=== PATIENT | female | born 1960 | race Caucasian/White ===

== ENCOUNTER 2018-03-09 07:46 | Inpatient (IN) | payer OTHER ==
[2018-03-09 08:03] VITALS: BMI 36.8
--- NOTE | 2018-03-09 08:52 | PDOC ---
History of Present Illness - History of Present Illness Initial Comments: The patient is a 57 year old chadian speaking female with PMHx of panic attacks , anxiety, and GERD, who presents with RUQ pain since last night. The patient reports that last night she ate [place] food and soon afterwards she began experiencing abdominal pain. She states that she woke up around 5 am and the abdominal pain worsened. She describes her abdominal pain as constant, does not radiate, rates 10/10, states that she has felt this type of pain before but it hasn't gone away. She reports associated nausea, with 2 episodes of non-bloody vomit. She states that she took her medication this morning. She states that she saw her GI doctor 2 weeks ago. She has an endoscopy appointment on 03/21/18. She is scheduled to have an US today. She denies any fever, chills, diarrhea, urinary complaints. Denies any chest pain or shortness of breath. Allergies: Meperidine PCP: Michi Calderon GI: Ramu Mcmillan <Brittany Reeves - Last Filed: 03/09/18 11:58> <Abdullahi Olson - Last Filed: 03/09/18 12:16> - General Chief Complaint: Pain, Acute Stated Complaint: ABDOMINAL PAIN Time Seen by Provider: 03/09/18 08:28 Past History <Brittany Reeves - Last Filed: 03/09/18 11:58> - Past Medical History COPD: No GI Disorders: Yes (gastritis ) Psychiatric Problems: Yes (anxiety Depression ) - Suicide/Smoking/Psychosocial Hx Smoking Status: No Smoking History: Never smoked Have you smoked in the past 12 months: No Number of Cigarettes Smoked Daily: 0 Hx Alcohol Use: No Drug/Substance Use Hx: No Substance Use Type: None <Abdullahi Olson - Last Filed: 03/09/18 12:16> - Past Medical History Allergies/Adverse Reactions: Allergies Allergy/AdvReac Type Severity Reaction Status Date / Time meperidine HCl [From Demerol] Allergy Verified 03/09/18 07:59 Home Medications: Ambulatory Orders Paroxetine HCl 20 mg PO HS 12/01/15 Zolpidem Tartrate [Ambien] 5 mg PO HS PRN 04/27/16 Pantoprazole Sodium [Protonix] 40 mg PO DAILY #30 tablet. 09/01/17 Review of Systems - Review of Systems Comments:: CONSTITUTIONAL: No reported: Fever, Chills, Diaphoresis, Generalized Weakness, Malaise, Loss of Appetite HEENT: No reported: Rhinorrhea, Nasal Congestion, Throat Pain, Throat Swelling, Difficulty Swallowing, Mouth Swelling, Ear Pain, Eye Pain, Visual Changes CARDIOVASCULAR: No reported: Chest Pain, Syncope, Palpitations, Irregular Heart Rate, Lightheadedness, Peripheral Edema RESPIRATORY: No reported: Cough, Shortness of Breath, SOB with Exertion, Orthopnea, Wheezing , Stridor, Hemoptysis GASTROINTESTINAL: Reported: RUQ pain, Nausea, Vomiting No reported: Abdominal Distension, Diarrhea, Constipation, Melena, Hematochezia GENITOURINARY: No reported: Dysuria, Frequency, Urgency, Hesitancy, Flank Pain, Genital Pain MUSCULOSKELETAL: No reported: Myalgia, Arthralgia, Joint Swelling, Back pain, Neck Pain SKIN: No reported: Rash, Itching, Pallor HEMEATOLOGIC/IMMUNOLOGIC: No reported: Easy Bleeding, Easy Bruising, Lymphadenopathy, Frequent infections ENDOCRINE: No reported: Unexplained Weight Gain, Unexplained Weight Loss, Heat Intolerance , Cold Intolerance NEUROLOGIC: No reported: Headache, Focal Weakness, Paresthesias, Vertigo, Lightheadedness, Unsteady Gait, Seizure, Mental Status Changes, Incontinence PSYCHIATRIC: No reported: Anxiety, Depression <Brittany Reeves - Last Filed: 03/09/18 11:58> *Physical Exam - Vital Signs Last Vital Signs Temp Pulse Resp BP Pulse Ox 98.3 F 95 H 19 155/93 96 03/09/18 07:59 03/09/18 07:59 03/09/18 07:59 03/09/18 07:59 03/09/18 09:00 - Physical Exam Comments: GENERAL: The patient is awake, alert, and fully oriented, Nontoxic - in no acute distress. HEAD: Normocephalic, atraumatic. EYES: extraocular movements intact, sclera anicteric, conjunctiva clear. ENT: Normal voice, Moist mucous membranes. NECK: Normal range of motion, supple LUNGS: Breath sounds equal, clear to auscultation bilaterally. No wheezes, no rhonchi, no rales. HEART: Regular rate and rhythm, without murmur, rub or gallop. ABDOMEN: Soft, RUQ tenderness to palpation, Voluntary guarding, no rebound.No CVA tenderness, Positive andres's sign EXTREMITIES: Normal range of motion, no edema. No cyanosis. No erythema, or tenderness. NEUROLOGICAL: No facial assymetry, Normal speech, PSYCH: Normal mood, normal affect. SKIN: Warm, Dry, normal turgor. <Brittany Reeves - Last Filed: 03/09/18 11:58> - Vital Signs Last Vital Signs Temp Pulse Resp BP Pulse Ox 98.3 F 95 H 19 155/93 96 03/09/18 07:59 03/09/18 07:59 03/09/18 07:59 03/09/18 07:59 03/09/18 07:59 <Whitney,Abdullahi - Last Filed: 03/09/18 12:16> Heart Score/ECG Review - ECG Impressions Comment:: 03/09/18 11:32 Twelve-lead EKG was performed and reviewed by me. There is normal sinus rhythm with a normal rate. Rate of 71 The axis is normal. The intervals are normal. There is normal R wave progression There are no ST or T wave abnormalities. Impression: Normal twelve-lead EKG <Abdullahi Olson - Last Filed: 03/09/18 12:16> ED Treatment Course - LABORATORY CBC & Chemistry Diagram: 03/09/18 09:10 03/09/18 09:10 - ADDITIONAL ORDERS Additional order review: Laboratory Results 03/09/18 03/09/18 09:30 09:10 Sodium 138 Potassium 3.9 Chloride 102 Carbon Dioxide 23 Anion Gap 13 BUN 10 Creatinine 0.9 Creat Clearance w eGFR > 60 Random Glucose 156 H Calcium 9.2 Total Bilirubin 0.3 AST 33 ALT 44 Alkaline Phosphatase 120 H Total Protein 9.1 H Albumin 4.0 Lipase 135 Urine Color Yellow Urine Appearance Slcloudy Urine pH 5.0 Ur Specific [place] 1.019 Urine Protein 2+ H Urine Glucose (UA) 1+ H Urine Ketones Trace H Urine Blood Negative Urine Nitrite Negative Urine Bilirubin Negative Urine Urobilinogen Negative Ur Leukocyte Esterase Negative Urine WBC (Auto) 4 Urine RBC (Auto) 3 Ur Epithelial Cells Few Urine Bacteria Few Hyaline Casts 17 Urine Mucus Few 03/09/18 09:10 RBC 4.10 MCV 91.1 MCHC 33.4 RDW 13.8 MPV 9.1 Neutrophils % 62.8 Lymphocytes % 27.8 Monocytes % 7.5 Eosinophils % 1.5 Basophils % 0.4 - RADIOLOGY Radiograph Interpretation: US Gallbladder Impression: 1. Cholelithiasis. 2. Hepatomegaly with dffuse fatty infiltration of the liver. Reported By: Salvatore Pleitez MD 03/09/18 1056 - Medications Given in the ED: ED Medications Discontinued Medications Generic Name Dose Route Start Last Admin Trade Name Freq PRN Reason Stop Dose Admin Al Hydroxide/Mg Hydroxide 30 ml 03/09/18 08:56 03/09/18 09:22 Mylanta Suspension - PO 03/09/18 08:57 30 ml ONCE ONE Administration Famotidine/Sodium Chloride 20 50 mls @ 100 mls/hr 03/09/18 08:56 03/09/18 09: 24 mg/ Miscellaneous IVPB 03/09/18 09:25 100 mls/hr ONCE ONE Administration Ketorolac Tromethamine 30 mg 03/09/18 08:54 03/09/18 09:25 Toradol Injection - IVPUSH 03/09/18 08:55 30 mg ONCE ONE Administration Ketorolac Tromethamine 30 mg 03/09/18 09:24 03/09/18 09:35 Toradol Injection - IVPUSH 03/09/18 09:25 Not Given ONCE ONE Morphine Sulfate 4 mg 03/09/18 10:25 03/09/18 10:33 Morphine Injection - IVPUSH 03/09/18 10:26 4 mg ONCE ONE Administration Ondansetron HCl 4 mg 03/09/18 09:23 03/09/18 09:34 Zofran Injection IVPUSH 03/09/18 09:24 4 mg ONCE ONE Administration - Consult/PCP Time Called: 11:49 (Junie Santoyo TOOL ROOM MACHINIST) <Brittany Reeves - Last Filed: 03/09/18 11:58> - LABORATORY CBC & Chemistry Diagram: 03/09/18 09:10 03/09/18 09:10 <Abdullahi Olson - Last Filed: 03/09/18 12:16> Medical Decision Making - Medical Decision Making 03/09/18 08:51 57y F hx of anxiety, present with 4 hrs of abdominal pain. pt notes she had mild discomfort in her abgdomen since eating dinner las tnight but pain worsened the past 4-5 hours, presents wit hnbnb vomiting x 2, and assoicated nauesa. pain is 10/10 in the RUQ. no associated fever/chills, diarrhea, hematuria. 03/09/18 11:30 pt has cholelithasis noted on US labs unremarkable pt stil toma pain will give another dose of morphine will discuss with dr. mcmillan (her GI doc) 03/09/18 11:[address] mcmillan as pt is stil toma pain, requests that we admit pt and discus with surgury will notify dr. coombs (pmd dr. calderon) 03/09/18 11:53 case dw TOOL ROOM MACHINIST Kimo (TOOL ROOM MACHINIST for Dr. mullen) agree with admission / obs for further mangament requets consult from Dr. Fall Case discussed in detail with admitting physician including history, physical exam and ancillary studies. Admitting physician has assumed care for the patient, will follow all pending diagnostics and will complete the evaluation and treatment. 03/09/18 12:15 Daughter: Gonzalez Arredondo [phone] <Abdullahi Olson - Last Filed: 03/09/18 12:16> *DC/Admit/Observation/Transfer - Attestations Scribe Attestion: 03/09/18 11:39 Documentation prepared by Brittany Reeves, acting as medical insurance coding specialist for Abdullahi Olson MD, MD. <Brittany Reeves - Last Filed: 03/09/18 11:58> - Discharge Dispostion Decision to Admit order: Yes <Abdullahi Olson - Last Filed: 03/09/18 12:16> Diagnosis at time of Disposition: Cholelithiasis Qualifiers: Cholelithiasis location: other site Biliary obstruction: without biliary obstruction Qualified Code(s): K80.80 - Other cholelithiasis without obstruction - Discharge Dispostion Condition at time of disposition: Stable
[2018-03-09] MEDS ORDERED: FAMOTIDINE 20 MG/50 ML IVPB 20 MG in PREMIX 50 IVPB ONE (08:56)
[2018-03-09] MEDS ORDERED: MAG HYDROX/AL HYDROX/SIMETH -MYLANTA- ORAL SUSPENSION PO ONE (08:56)
[2018-03-09] MEDS ORDERED: FAMOTIDINE 20 MG/50 ML IVPB 20 MG/50 ML MG IVPB ONE (09:02)
[2018-03-09] MEDS ORDERED: KETOROLAC TROMETHAMINE 30 MG/1 ML VIAL ONE (09:02)
[2018-03-09] MEDS ORDERED: MAG HYDROX/AL HYDROX/SIMETH 30 ML UNIT-DOSE CUP ONE (09:02)
[2018-03-09 09:22] LABS: BASO % 0.4 % (0-2.0); EOS % 1.5 % (0-4.5); HEMATOCRIT 37.4 % (32.4-45.2); HEMOGLOBIN 12.5 GM/dL (10.7-15.3); LYMPH % 27.8 % (8-40); MCH 30.4 pg (25.7-33.7); MCHC 33.4 g/dl (32.0-36.0); MEAN CELL VOLUME 91.1 fl (80-96); MEAN PLT VOLUME 9.1 fl (7.5-11.1); MONO % 7.5 % (3.8-10.2); NEUT % 62.8 % (42.8-82.8); PLATELET COUNT 272 K/MM3 (134-434); RDW 13.8 % (11.6-15.6); WHITE BLOOD COUNT 9.2 K/mm3 (4.0-10.0)
[2018-03-09] MEDS: KETOROLAC TROMETHAMINE 30 MG/1 ML VIAL IVPUSH ONE ×2 (09:22→09:25)
[2018-03-09] MEDS ORDERED: ONDANSETRON 4 MG/2 ML VIAL IVPUSH ONE (09:23)
[2018-03-09] MEDS ORDERED: KETOROLAC TROMETHAMINE 30 MG/1 ML VIAL IVPUSH ONE (09:24)
[2018-03-09] MEDS ORDERED: ONDANSETRON 4 MG/2 ML VIAL ONE (09:27)
[2018-03-09 09:52] LABS: ALK PHOS 120 U/L (45-117); ANION GAP 13 MMOL/L (8-16); BILIRUBIN,TOTAL 0.3 mg/dL (0.2-1.0); BLOOD UREA NITROGEN 10 mg/dL (7-18); CALCIUM 9.2 mg/dL (8.5-10.1); CHLORIDE 102 mmol/L (98-107); CO2 23 mmol/L (21-32); CREATININE 0.9 mg/dL (0.55-1.02); GLUCOSE,RANDOM 156 mg/dL (74-106); LIPASE 135 U/L (73-393); POTASSIUM 3.9 mmol/L (3.5-5.1); SGOT/AST 33 U/L (15-37); SGPT/ALT 44 U/L (12-78); SODIUM 138 mmol/L (136-145); TOT PROT 9.1 g/dl (6.4-8.2)
[2018-03-09 09:54] LABS: URINE APPEARANCE SLCLOUDY; URINE BILIRUBIN NEGATIVE (<2.0 mg/dL); URINE COLOR YELLOW; URINE GLUCOSE (UA) 1+ (NEGATIVE); URINE KETONE TRACE (NEGATIVE); URINE LEUK ESTERASE NEGATIVE (NEGATIVE); URINE NITRITE NEGATIVE (NEGATIVE); URINE UROBILINOGEN NEGATIVE mg/dL (0.2-1.0)
[2018-03-09 10:00] LABS: URINE PROTEIN 2+ (NEGATIVE)
[2018-03-09 10:01] LABS: EPI CELLS FEW /HPF (FEW); URINE BACTERIA FEW /hpf (NONE SEEN); URINE HYALINE CAST 17 /lpf; URINE MUCUS FEW
[2018-03-09] MEDS ORDERED: morphine CARPU-JECT 4 MG/1 ML DISP.SYRIN IVPUSH ONE ×3 (10:25→13:31)
[2018-03-09] MEDS ORDERED: morphine SULFATE 4 MG/ML VIAL ONE ×2 (10:28→11:38)
[2018-03-09] MEDS ORDERED: SODIUM CHLORIDE 1,000 ML IV SCH (12:00)
[2018-03-09] MEDS ORDERED: KETOROLAC TROMETHAMINE 30 MG/1 ML VIAL IVPUSH PRN (12:04)
[2018-03-09] MEDS ORDERED: morphine SULFATE 4 MG/ML VIAL IVPUSH PRN (12:04)
[2018-03-09] MEDS ORDERED: ACETAMINOPHEN 1000 MG/100 ML VIAL (NON FORMULARY) IVPB PRN ×2 (12:05→17:05)
[2018-03-09] MEDS ORDERED: ONDANSETRON 4 MG/2 ML VIAL IVPUSH PRN (12:07)
[2018-03-09] MEDS ORDERED: LACTATED RINGERS SOLUTION 1,000 ML/1,000 ML INFUS.BAG IV SCH ×2 (12:15→17:05)
--- NOTE | 2018-03-09 12:56 | EKG ---
Test Reason : Blood Pressure : / mmHG Vent. Rate : 071 BPM Atrial Rate : 071 BPM P-R Int : 170 ms QRS Dur : 090 ms QT Int : 412 ms P-R-T Axes : 052 014 029 degrees QTc Int : 447 ms NORMAL SINUS RHYTHM NORMAL ECG WHEN COMPARED WITH ECG OF 01-DEC-2015 09:06, NO SIGNIFICANT CHANGE WAS FOUND Confirmed by TERESA CARRANZA MD ([id number]) on 03/09/2018 12:55:33 PM Referred By: Confirmed By:TERESA CARRANZA MD
--- NOTE | 2018-03-09 13:29 | CON.GI ---
Consult Consult Specialty:: GI Reason for Consultation:: abdominal pain - History of Present Illness History of Present Illness: Chart reviewed. Events noted. Dr. Marcial's patient. per ED intake 03/09/18: The patient is a 57 year old nigerien speaking female with PMHx of panic attacks, anxiety, and GERD, who presents with RUQ pain since last night. The patient reports that last night she ate Italian food and soon afterwards she began experiencing abdominal pain. She states that she woke up around 5 am and the abdominal pain worsened. She describes her abdominal pain as constant, does not radiate, rates 10/10, states that she has felt this type of pain before but it hasn't gone away. She reports associated nausea, with 2 episodes of non-bloody vomit. She states that she took her medication this morning. She states that she saw her GI doctor 2 weeks ago. She has an endoscopy appointment on 03/21/18. She is scheduled to have an US today. She denies any fever, chills, diarrhea, urinary complaints. Denies any chest pain or shortness of breath. Allergies: Meperidine PCP: Michi Christine GI: Ramu Marcial US RUQ Real time examination of the abdomen demonstrates the following: The gallbladder is slightly contracted and does contain multiple calculi. If acute cholecystitis is clinically suspected, a follow-up HIDA scan may be warranted. There is no evidence of intra or extrahepatic biliary duct dilatation. The liver is enlarged measuring 19.8 cm in craniocaudad dimension. It is hyperechoic in texture consistent with diffuse fatty infiltration. No discrete intrahepatic masses are identified. Hepatopedal flow is documented within the main portal vein. The pancreas is normal in size and texture with no pancreatic masses identified. There is no evidence of hydronephrosis or acute abnormalities of the right kidney. There is no evidence of AAA. The IVC is patent. IMPRESSION: 1. Cholelithiasis. 2. Hepatomegaly with diffuse fatty infiltration of the liver. Clinical correlation and follow-up recommended. Please see above discussion. Reported By: Salvatore Pleitez MD 03/09/18 1056 Current Medications Generic Name Dose Route Start Last Admin Trade Name Freq PRN Reason Stop Dose Admin Acetaminophen 1,000 mg 03/09/18 12:05 03/09/18 12:35 Ofirmev Injection - IVPB 1,000 mg Q6H PRN Administration PAIN LEVEL 1 - 3 Lactated Ringer's 1,000 ml in 1,000 mls @ 100 mls/hr 03/09/18 12:15 03/09/18 12:29 Lactated Ringers Solution IV 100 mls/hr ASDIR DAIN Administration Ketorolac Tromethamine 30 mg 03/09/18 12:04 Toradol Injection - IVPUSH 03/14/18 12:03 Q6H PRN PAIN LEVEL 4 - 6 Morphine Sulfate 4 mg 03/09/18 12:04 Morphine Sulfate IVPUSH Q4H PRN PAIN LEVEL 7 - 10 Ondansetron HCl 4 mg 03/09/18 12:07 Zofran Injection IVPUSH Q8H PRN NAUSEA AND/OR VOMITING Pantoprazole Sodium 40 mg 03/10/18 10:00 Protonix Iv IVPUSH DAILY DAIN At the time of this encounter, the pt is in moderate discomfort from persistent , non-radiating, 9/10 RUQ pain with positive Bush's. Onset 5 am today. No associated dysphagia, odynophagia, jaundice, fever. Normal CBC, ALP 120, otherwise normal CMP. - History Source History Provided By: Patient, Medical Record - Alcohol/Substance Use Hx Alcohol Use: No - Smoking History Smoking history: Never smoked Have you smoked in the past 12 months: No Aproximately how many cigarettes per day: 0 Home Medications - Allergies Allergies/Adverse Reactions: Allergies Allergy/AdvReac Type Severity Reaction Status Date / Time meperidine HCl [From Demerol] Allergy Verified 03/09/18 07:59 - Home Medications Home Medications: Ambulatory Orders Paroxetine HCl 20 mg PO HS 12/01/15 Zolpidem Tartrate [Ambien] 5 mg PO HS PRN 04/27/16 Pantoprazole Sodium [Protonix] 40 mg PO DAILY #30 tablet. 09/01/17 Family Disease History - Family Disease History Family History: Unremarkable Review of Systems Findings/Remarks: as per HPI, ED, H&P Physical Exam-GI Vital Signs: Vital Signs Temperature 98.9 F 03/09/18 12:26 Pulse Rate 88 03/09/18 12:26 Respiratory Rate 19 03/09/18 12:26 Blood Pressure 157/88 03/09/18 12:26 O2 Sat by Pulse Oximetry (%) 100 03/09/18 12:26 Constitutional: Yes: Well Nourished, Moderate Distress Eyes: Yes: Conjunctiva Clear HENT: Yes: Atraumatic Neck: Yes: Supple Cardiovascular: Yes: Regular Rate and Rhythm, Tachycardia Respiratory: Yes: Regular Gastrointestinal Inspection: No: Ascites, Distention ...Auscultate: Yes: Normoactive Bowel Sounds ...Palpate: Yes: Tenderness, Tenderness, Epigastium Neurological: Yes: Alert, Oriented Labs: CBC, BMP 03/09/18 09:10 03/09/18 09:10 Laboratory Last Values WBC 9.2 K/mm3 (4.0-10.0) 03/09/18 09:10 RBC 4.10 M/mm3 (3.60-5.2) 03/09/18 09:10 Hgb 12.5 GM/dL (10.7-15.3) 03/09/18 09:10 Hct 37.4 % (32.4-45.2) 03/09/18 09:10 MCV 91.1 fl (80-96) 03/09/18 09:10 MCH 30.4 pg (25.7-33.7) 03/09/18 09:10 MCHC 33.4 g/dl (32.0-36.0) 03/09/18 09:10 RDW 13.8 % (11.6-15.6) 03/09/18 09:10 Plt Count 272 K/MM3 (134-434) 03/09/18 09:10 MPV 9.1 fl (7.5-11.1) 03/09/18 09:10 Absolute Neuts (auto) 5.7 K/mm3 (1.5-8.0) 03/09/18 09:10 Neutrophils % 62.8 % (42.8-82.8) 03/09/18 09:10 Lymphocytes % 27.8 % (8-40) 03/09/18 09:10 Monocytes % 7.5 % (3.8-10.2) 03/09/18 09:10 Eosinophils % 1.5 % (0-4.5) 03/09/18 09:10 Basophils % 0.4 % (0-2.0) 03/09/18 09:10 Nucleated RBC % 0 % (0-0) 03/09/18 09:10 Sodium 138 mmol/L (136-145) 03/09/18 09:10 Potassium 3.9 mmol/L (3.5-5.1) 03/09/18 09:10 Chloride 102 mmol/L (98-107) 03/09/18 09:10 Carbon Dioxide 23 mmol/L (21-32) 03/09/18 09:10 Anion Gap 13 MMOL/L (8-16) 03/09/18 09:10 BUN 10 mg/dL (7-18) 03/09/18 09:10 Creatinine 0.9 mg/dL (0.55-1.02) 03/09/18 09:10 Creat Clearance w eGFR > 60 (>60) 03/09/18 09:10 Random Glucose 156 mg/dL (74-106) H 03/09/18 09:10 Calcium 9.2 mg/dL (8.5-10.1) 03/09/18 09:10 Total Bilirubin 0.3 mg/dL (0.2-1.0) 03/09/18 09:10 AST 33 U/L (15-37) 03/09/18 09:10 ALT 44 U/L (12-78) 03/09/18 09:10 Alkaline Phosphatase 120 U/L (45-117) H 03/09/18 09:10 Total Protein 9.1 g/dl (6.4-8.2) H 03/09/18 09:10 Albumin 4.0 g/dl (3.4-5.0) 03/09/18 09:10 Lipase 135 U/L (73-393) 03/09/18 09:10 Urine Color Yellow 03/09/18 09:30 Urine Appearance Slcloudy 03/09/18 09:30 Urine pH 5.0 (5.0-8.0) 03/09/18 09:30 Ur Specific [place] 1.019 (1.001-1.035) 03/09/18 09:30 Urine Protein 2+ (NEGATIVE) H 03/09/18 09:30 Urine Glucose (UA) 1+ (NEGATIVE) H 03/09/18 09:30 Urine Ketones Trace (NEGATIVE) H 03/09/18 09:30 Urine Blood Negative (NEGATIVE) 03/09/18 09:30 Urine Nitrite Negative (NEGATIVE) 08/31/18 09:30 Urine Bilirubin Negative (<2.0 mg/dL) 03/09/18 09:30 Urine Urobilinogen Negative mg/dL (0.2-1.0) 03/09/18 09:30 Ur Leukocyte Esterase Negative (NEGATIVE) 03/09/18 09:30 Urine WBC (Auto) 4 /hpf (3-5) 03/09/18 09:30 Urine RBC (Auto) 3 /hpf (0-3) 03/09/18 09:30 Ur Epithelial Cells Few /HPF (FEW) 03/09/18 09:30 Urine Bacteria Few /hpf (NONE SEEN) 03/09/18 09:30 Hyaline Casts 17 /lpf 03/09/18 09:30 Urine Mucus Few 03/09/18 09:30 Imaging - Results Ultrasound: Report Reviewed Other: Pending (HIDA) Problem List - Problems (1) RUQ abdominal pain Code(s): R10.11 - RIGHT UPPER QUADRANT PAIN (2) Positive Bush's Sign Code(s): R19.8 - OTH SYMPTOMS AND SIGNS INVOLVING THE DGSTV SYS AND ABDOMEN (3) Cholelithiasis Code(s): K80.20 - CALCULUS OF GALLBLADDER W/O CHOLECYSTITIS W/O OBSTRUCTION Qualifiers: Cholelithiasis location: other site Biliary obstruction: without biliary obstruction Qualified Code(s): K80.80 - Other cholelithiasis without obstruction Assessment/Plan A 57F with acute onset RUQ/Epig tenderness and positive Bush's. Cholelithiasis was found on RUQ sonogram. Normal CBD, CBC, CMP (ALP 120), lipase. No clinical response to GI cocktail, PPI, H2RB while in ED. HIDA in progress. Agree with HIDA. NPO, IVF. PPI, antriemetic and pain meds IV, No NSAIDs Sx evaluation ?symptomatic cholelithiasis ?peptic ulcer. Do not suspect GI bleeding, perforation of viscous
--- NOTE | 2018-03-09 13:46 | HP ---
Admitting History and Physical - Primary Care Physician PCP: Michi Christine - Admission Chief Complaint: Abdominal pain History of Present Illness: The patient is a 57 year old lao speaking female with PMHx of panic attacks , anxiety, and GERD, who presents with RUQ pain since last night. The patient reports that last night she ate [place] food and soon afterwards she began experiencing abdominal pain. She states that she woke up around 5 am and the abdominal pain worsened. She describes her abdominal pain as constant, does not radiate, rates 10/10, states that she has felt this type of pain before but it hasn't gone away. She reports associated nausea, with 2 episodes of non-bloody vomit. She states that she took her medication this morning. She states that she saw her GI doctor 2 weeks ago. She has an endoscopy appointment on 03/21/18. She is scheduled to have an US today. She denies any fever, chills, diarrhea, urinary complaints. Denies any chest pain or shortness of breath. History Source: Patient, Medical Record Limitations to Obtaining History: No Limitations - Smoking History Smoking history: Never smoked Have you smoked in the past 12 months: No Aproximately how many cigarettes per day: 0 - Alcohol/Substance Use Hx Alcohol Use: No Home Medications - Allergies Allergies/Adverse Reactions: Allergies Allergy/AdvReac Type Severity Reaction Status Date / Time meperidine HCl [From Demerol] Allergy Verified 03/09/18 07:59 - Home Medications Home Medications: Ambulatory Orders Paroxetine HCl 20 mg PO HS 12/01/15 Zolpidem Tartrate [Ambien] 5 mg PO HS PRN 04/27/16 Pantoprazole Sodium [Protonix] 40 mg PO DAILY #30 tablet. 09/01/17 Review of Systems - Review of Systems Constitutional: reports: No Symptoms Eyes: reports: No Symptoms HENT: reports: No Symptoms Neck: reports: No Symptoms Cardiovascular: reports: No Symptoms Respiratory: reports: No Symptoms Gastrointestinal: reports: Abdominal Pain, Nausea, Vomiting Genitourinary: reports: No Symptoms Breasts: reports: No Symptoms Reported Musculoskeletal: reports: No Symptoms Integumentary: reports: No Symptoms Neurological: reports: No Symptoms Endocrine: reports: No Symptoms Hematology/Lymphatic: reports: No Symptoms Psychiatric: reports: No Symptoms Pain Intensity: 6 Physical Examination Vital Signs: Vital Signs Temperature 98.9 F 03/09/18 12:26 Pulse Rate 88 03/09/18 12:26 Respiratory Rate 19 03/09/18 12:26 Blood Pressure 157/88 03/09/18 12:26 O2 Sat by Pulse Oximetry (%) 100 03/09/18 12:26 Constitutional: Yes: Well Nourished, Calm, Mild Distress Cardiovascular: Yes: Regular Rate and Rhythm Respiratory: Yes: Regular Gastrointestinal: Yes: Hypoactive Bowel Sounds, Tenderness, Other (guarding) Musculoskeletal: Yes: WNL Extremities: Yes: WNL Edema: No Neurological: Yes: Alert, Oriented Psychiatric: Yes: Alert, Oriented Labs: CBC, BMP 03/09/18 09:10 03/09/18 09:10 Imaging - Results Ultrasound: Report Reviewed Other: Pending (HIDA) Problem List - Problems (1) Calculus of gallbladder with acute cholecystitis without obstruction Assessment/Plan: -Hida scan -IVF -NPO -Surgery consult -GI consult -Pain management: morphine,toradol and acetaminophen Code(s): K80.00 - CALCULUS OF GALLBLADDER W ACUTE CHOLECYST W/O OBSTRUCTION (2) Cholelithiasis Code(s): K80.20 - CALCULUS OF GALLBLADDER W/O CHOLECYSTITIS W/O OBSTRUCTION Qualifiers: Cholelithiasis location: other site Biliary obstruction: without biliary obstruction Qualified Code(s): K80.80 - Other cholelithiasis without obstruction Assessment/Plan see problem list
--- NOTE | 2018-03-09 16:28 | CONSULT ---
Consult Consult Specialty:: General Surgery Referred by:: Nikolay Santoyo Reason for Consultation:: cholelithiasis, RUQ pain, N/V - History of Present Illness Chief Complaint: RUQ/epigastric pain, N/V History of Present Illness: 57yo obese [place] F with panic disorder, anxiety, GERD, s/p abdominoplasty and LLL fx repair, presented to ER with acute RUQ/epigastric pain starting ~5am after Welsh food meal last night, associated with N/V twice at home. No f/c, no change in bowel habits, normal BM yesterday. She has had the pain before on/ off for 2 years, but this time it did not go away. In ER, she is afebrile with normal labs, and US showed contracted gallbladder with multiple stones, no wall thickening, no pericholecystic fluid, and no ductal dilation. HIDA was then done showing intestinal filling, but gallbladder was not visualized at 2 hours. She did have morphine in the ER, and has continued pain, though it is a little bit less with medication. She is getting fluids, and admitted to medicine. GI saw patient in ER as well. Surgery is asked to assess for possible cholecystitis. She is seen and examined in bed on the floor after HIDA. She still has pain, but is alert and cooperative. She is able to offer history in Scottish, but OR consent is taken with Haitian phone translator and interpreter. I also spoke with her daughter on speakerphone at bedside. - History Source History Provided By: Patient Limitations to Obtaining History: Language Barrier (Haitian - pt able to communicate fairly well in Scottish) - Past Medical History Gastrointestinal: Yes: GERD Hepatobiliary: Yes: Cholelithiasis ...: No Psych: Yes: Anxiety, Panic - Past Surgical History Additional Surgical History: left lower leg fracture surgery 5y ago; abdominoplasty in [place] - Alcohol/Substance Use Hx Alcohol Use: No History of Substance Use: reports: None - Smoking History Smoking history: Never smoked Have you smoked in the past 12 months: No - Social History ADL: Independent Home Medications - Allergies Allergies/Adverse Reactions: Allergies Allergy/AdvReac Type Severity Reaction Status Date / Time meperidine HCl [From Demerol] Allergy Verified 03/09/18 07:59 - Home Medications Home Medications: Ambulatory Orders Paroxetine HCl 20 mg PO HS 12/01/15 Zolpidem Tartrate [Ambien] 5 mg PO HS PRN 04/27/16 Pantoprazole Sodium [Protonix] 40 mg PO DAILY #30 tablet. 09/01/17 Family Disease History - Family Disease History Family Disease History: Heart Disease: Father (heart attack), Other: Mother ( liver cirrhosis), Sister (3 sisters had cholecystectomies) Review of Systems - Review of Systems Constitutional: denies: Chills, Fever Eyes: denies: Blurred Vision, Recent Change in Vision HENT: reports: Throat Pain (just yesterday). denies: Nasal Congestion Neck: denies: Swollen Glands, Tenderness Cardiovascular: reports: Palpitations (with panic attacks - not for long time). denies: Chest Pain Respiratory: reports: SOB on Exertion (walking up hills). denies: Cough, SOB Gastrointestinal: reports: Abdominal Pain, Nausea, Vomiting Genitourinary: denies: Burning, Dysuria Musculoskeletal: denies: Joint Pain, Muscle Pain Integumentary: denies: Change in Color, Rash Neurological: denies: Dizziness, Headache Psychiatric: reports: Anxiety, Panic (not for long time on meds). denies: Depression Physical Exam Vital Signs: Vital Signs Temperature 98.9 F 03/09/18 12:26 Pulse Rate 88 03/09/18 12:26 Respiratory Rate 19 03/09/18 12:26 Blood Pressure 157/88 03/09/18 12:26 O2 Sat by Pulse Oximetry (%) 100 03/09/18 12:26 Constitutional: Yes: Calm, Mild Distress (secondary to pain), Obese Eyes: Yes: Conjunctiva Clear, EOM Intact. No: Sclera Icterus HENT: Yes: Atraumatic, Normocephalic Neck: Yes: Supple, Trachea Midline Cardiovascular: Yes: Regular Rate and Rhythm. No: Murmur Respiratory: Yes: Regular, CTA Bilaterally Gastrointestinal: Yes: Normal Bowel Sounds, Soft, Abdomen, Obese, Tenderness ( RUQ/epigastric, no R/G), Tenderness, Epigastrium, Other (well-healed abdominoplasty scars). No: Distention ...Rectal Exam: Yes: Deferred Renal/: No: CVA Tenderness - Left, CVA Tenderness - Right Musculoskeletal: No: Joint Stiffness, Joint Swelling Extremities: Yes: Deformity (left lower leg with well-healed scar). No: Cool, Cyanosis Edema: No Peripheral Pulses WNL: Yes Integumentary: Yes: Tattoos. No: Jaundice, Rash Neurological: Yes: Alert, Oriented Psychiatric: Yes: Alert, Oriented. No: Agitated Labs: CBC, BMP 03/09/18 09:10 03/09/18 09:10 CMP Sodium 138 mmol/L (136-145) 03/09/18 09:10 Potassium 3.9 mmol/L (3.5-5.1) 03/09/18 09:10 Chloride 102 mmol/L (98-107) 03/09/18 09:10 Carbon Dioxide 23 mmol/L (21-32) 03/09/18 09:10 Anion Gap 13 MMOL/L (8-16) 03/09/18 09:10 BUN 10 mg/dL (7-18) 03/09/18 09:10 Creatinine 0.9 mg/dL (0.55-1.02) 03/09/18 09:10 Creat Clearance w eGFR > 60 (>60) 03/09/18 09:10 Random Glucose 156 mg/dL (74-106) H 03/09/18 09:10 Hemoglobin A1c % 6.0 % (4.8-6.0) 03/09/18 12:02 Calcium 9.2 mg/dL (8.5-10.1) 03/09/18 09:10 Total Bilirubin 0.3 mg/dL (0.2-1.0) 03/09/18 09:10 AST 33 U/L (15-37) 03/09/18 09:10 ALT 44 U/L (12-78) 03/09/18 09:10 Alkaline Phosphatase 120 U/L (45-117) H 03/09/18 09:10 Total Protein 9.1 g/dl (6.4-8.2) H 03/09/18 09:10 Albumin 4.0 g/dl (3.4-5.0) 03/09/18 09:10 Lipase 135 U/L (73-393) 03/09/18 09:10 Urine Test Results Urine Color Yellow 03/09/18 09:30 Urine Appearance Slcloudy 03/09/18 09:30 Urine pH 5.0 (5.0-8.0) 03/09/18 09:30 Ur Specific [place] 1.019 (1.001-1.035) 03/09/18 09:30 Urine Protein 2+ (NEGATIVE) H 03/09/18 09:30 Urine Glucose (UA) 1+ (NEGATIVE) H 03/09/18 09:30 Urine Ketones Trace (NEGATIVE) H 03/09/18 09:30 Urine Blood Negative (NEGATIVE) 03/09/18 09:30 Urine Nitrite Negative (NEGATIVE) 03/09/18 09:30 Urine Bilirubin Negative (<2.0 mg/dL) 03/09/18 09:30 Ur Leukocyte Esterase Negative (NEGATIVE) 03/09/18 09:30 Ur Epithelial Cells Few /HPF (FEW) 03/09/18 09:30 Urine Bacteria Few /hpf (NONE SEEN) 03/09/18 09:30 Urine Mucus Few 03/09/18 09:30 Imaging - Results Ultrasound: Report Reviewed, Image Reviewed (images personally reviewed - multiple gallstones, gb wall not thickened, no clear pericholecystic fluid, cbd not dilated) Other: Report Reviewed, Image Reviewed (HIDA images reviewed - intestine fills, but gallbladder does not at 2 hrs) Problem List - Problems (1) Calculus of gallbladder with acute cholecystitis without obstruction Assessment/Plan: symptomatic cholelithiasis with cystic duct obstruction by HIDA pt did have morphine in ER, but may still have acute cholecystitis no elevation in wbc, no thickening of gallbladder wall admitted to medicine NPO/IVF pain meds prn will start Cefoxitin GI/DVT prophylaxis spanish interpreter/translator #[id number] by phone used for consent: Discussed with patient risks, benefits and alternatives of laparoscopic possible open cholecystectomy, including but not limited to bleeding, infection , injury to adjacent structures, bile leak or ductal injury, intraabdominal abscess, incisional hernia, need for further procedures; alternatives include low-fat diet with delayed or no surgery - risks of this include recurrence of biliary colic, progressive cholecystitis, cholangitis, pancreatitis. Patient desires to proceed with operation - will take to OR in am for above pending am labs. Informed consent signed for same. Discussed with TOWER FOREMAN Yarelis Code(s): K80.00 - CALCULUS OF GALLBLADDER W ACUTE CHOLECYST W/O OBSTRUCTION (2) RUQ abdominal pain Code(s): R10.11 - RIGHT UPPER QUADRANT PAIN (3) GERD (gastroesophageal reflux disease) Assessment/Plan: PPI daily Code(s): K21.9 - GASTRO-ESOPHAGEAL REFLUX DISEASE WITHOUT ESOPHAGITIS Qualifiers: Esophagitis presence: without esophagitis Qualified Code(s): K21.9 - Gastro -esophageal reflux disease without esophagitis (4) Obesity due to excess calories without serious comorbidity Code(s): E66.09 - OTHER OBESITY DUE TO EXCESS CALORIES Qualifiers: Obesity classification: adult class 2 (BMI 35 - 39.9) Body mass index: BMI 36.0-36.9 Qualified Code(s): E66.09 - Other obesity due to excess calories; Z68.36 - Body mass index (BMI) 36.0-36.9, adult (5) Generalized anxiety disorder with panic attacks Assessment/Plan: ok to continue home meds Code(s): F41.1 - GENERALIZED ANXIETY DISORDER; F41.0 - PANIC DISORDER [EPISODIC PAROXYSMAL ANXIETY]
--- NOTE | 2018-03-09 16:35 | PN ---
Progress Note (short form) - Note Progress Note: HIDA results noted. Sx is on the case. Zosyn started Problem List - Problems (1) RUQ abdominal pain Code(s): R10.11 - RIGHT UPPER QUADRANT PAIN (2) Positive Bush's Sign Code(s): R19.8 - OTH SYMPTOMS AND SIGNS INVOLVING THE DGSTV SYS AND ABDOMEN (3) Cholelithiasis Code(s): K80.20 - CALCULUS OF GALLBLADDER W/O CHOLECYSTITIS W/O OBSTRUCTION Qualifiers: Cholelithiasis location: other site Biliary obstruction: without biliary obstruction Qualified Code(s): K80.80 - Other cholelithiasis without obstruction
[2018-03-09] MEDS ORDERED: IBUPROFEN 800 MG/8 ML IJ IVPB PRN (17:03)
[2018-03-09] MEDS ORDERED: PIPERACILLIN/TAZOB 3.375 GM 3.375 GM in DEXTROSE 5%-WATER - 50 ML IVPB SCH (18:00)
[2018-03-09] MEDS: morphine SULFATE 4 MG/ML VIAL IVPUSH PRN (20:54)
[2018-03-09] MEDS: CEFOXITIN SODIUM 2 GM in DEXTROSE 5%-WATER - 100 ML IVPB SCH (20:54)
[2018-03-09 21:36] LABS: INR 1.11 (0.83-1.09); PROTHROMBIN TIME (PATIENT) 12.5 SEC (9.7-13.0)
[2018-03-09] MEDS ORDERED: ZOLPIDEM TARTRATE 5 MG TABLET PO PRN (22:00)
[2018-03-09] MEDS ORDERED: PARoxetine HCL 20 MG TABLET (FP) PO SCH (22:00)
[2018-03-10] MEDS: morphine SULFATE 4 MG/ML VIAL IVPUSH PRN (01:09)
[2018-03-10] MEDS: ONDANSETRON 4 MG/2 ML VIAL IVPUSH PRN ×2 (01:10→07:02)
[2018-03-10] MEDS: CEFOXITIN SODIUM 2 GM in DEXTROSE 5%-WATER - 100 ML IVPB SCH ×4 (03:01→17:15)
[2018-03-10 08:09] LABS: BASO % 0.3 % (0-2.0); EOS % 0.2 % (0-4.5); HEMATOCRIT 37.1 % (32.4-45.2); HEMOGLOBIN 12.4 GM/dL (10.7-15.3); LYMPH % 16.4 % (8-40); MCH 30.3 pg (25.7-33.7); MCHC 33.4 g/dl (32.0-36.0); MEAN CELL VOLUME 90.7 fl (80-96); MEAN PLT VOLUME 9.6 fl (7.5-11.1); MONO % 9.6 % (3.8-10.2); NEUT % 73.5 % (42.8-82.8); PLATELET COUNT 256 K/MM3 (134-434); RBC 4.09 M/mm3 (3.60-5.2); RDW 13.9 % (11.6-15.6); WHITE BLOOD COUNT 12.5 K/mm3 (4.0-10.0)
--- NOTE | 2018-03-10 08:10 | PN ---
Progress Note, Physician Chief Complaint: Abdominal pain Cholecyctitis History of Present Illness: NAD No Nausea/vomiting overnight, +belching - Current Medication List Current Medications: Active Medications Acetaminophen (Ofirmev Injection -) 1,000 mg IVPB Q6H PRN PRN Reason: PAIN LEVEL 4 - 6 Lactated Ringer's (Lactated Ringers Solution) 1,000 ml in 1,000 mls @ 150 mls/ hr IV ASDIR DAIN Last Admin: 03/09/18 17:25 Dose: 150 mls/hr Cefoxitin Sodium 2 gm/ (Dextrose) 100 mls @ 200 mls/hr IVPB Q8H-IV DAIN; Protocol Stop: 03/10/18 10:29 Last Admin: 03/10/18 03:01 Dose: 200 mls/hr Cefoxitin Sodium 2 gm/ (Dextrose) 100 mls @ 200 mls/hr IVPB Q8H-IV DAIN Ibuprofen (Caldolor Injection -) 800 mg IVPB Q8H PRN PRN Reason: PAIN LEVEL 6-10 Morphine Sulfate (Morphine Sulfate) 4 mg IVPUSH Q3H PRN PRN Reason: Pain Level 7 - 10 BREAKTHROUGH Last Admin: 03/10/18 01:09 Dose: 4 mg Ondansetron HCl (Zofran Injection) 4 mg IVPUSH Q6H PRN PRN Reason: NAUSEA AND/OR VOMITING Last Admin: 03/10/18 07:02 Dose: 4 mg Pantoprazole Sodium (Protonix Iv) 40 mg IVPUSH DAILY DAIN Paroxetine HCl (Paxil -) 20 mg PO HS DAIN Last Admin: 03/09/18 22:01 Dose: 20 mg Zolpidem Tartrate (Ambien -) 5 mg PO HS PRN PRN Reason: INSOMNIA Last Admin: 03/09/18 23:36 Dose: 5 mg - Objective Vital Signs: Vital Signs Temperature 98.3 F 03/10/18 07:19 Pulse Rate 72 03/10/18 07:19 Respiratory Rate 20 03/10/18 07:19 Blood Pressure 135/88 03/10/18 07:19 O2 Sat by Pulse Oximetry (%) 100 03/09/18 12:26 Constitutional: Yes: Well Nourished, No Distress, Calm Cardiovascular: Yes: Regular Rate and Rhythm Respiratory: Yes: Regular Gastrointestinal: Yes: Normal Bowel Sounds, Soft, Abdomen, Obese, Tenderness ( direct RUQ, Epigastric) Musculoskeletal: Yes: WNL Extremities: Yes: WNL Edema: No Peripheral Pulses WNL: Yes Neurological: Yes: Alert, Oriented Psychiatric: Yes: Alert, Oriented Labs: INR, PTT INR 1.11 (0.83-1.09) H 03/09/18 20:45 Problem List - Problems (1) Calculus of gallbladder with acute cholecystitis without obstruction Assessment/Plan: -Hida scan + for acute cholecyctitis -To OR today -Going for CXR now -Labs from today pending -IVF -NPO -Surgery consult -GI consult -Pain management: morphine,toradol and acetaminophen Code(s): K80.00 - CALCULUS OF GALLBLADDER W ACUTE CHOLECYST W/O OBSTRUCTION (2) Cholelithiasis Code(s): K80.20 - CALCULUS OF GALLBLADDER W/O CHOLECYSTITIS W/O OBSTRUCTION Qualifiers: Cholelithiasis location: other site Biliary obstruction: without biliary obstruction Qualified Code(s): K80.80 - Other cholelithiasis without obstruction Assessment/Plan see problem list
[2018-03-10 08:37] LABS: CHLORIDE 98 mmol/L (98-107); SODIUM 135 mmol/L (136-145)
[2018-03-10 08:42] LABS: ALBUMIN 3.5 g/dl (3.4-5.0); ANION GAP 9 MMOL/L (8-16); BLOOD UREA NITROGEN 8 mg/dL (7-18); CALCIUM 8.9 mg/dL (8.5-10.1); CO2 28 mmol/L (21-32); GLUCOSE,RANDOM 116 mg/dL (74-106); LIPASE 55 U/L (73-393)
[2018-03-10 08:44] LABS: CREATININE 0.9 mg/dL (0.55-1.02); SGOT/AST 38 U/L (15-37); SGPT/ALT 43 U/L (12-78)
[2018-03-10 08:45] LABS: BILIRUBIN,TOTAL 0.3 mg/dL (0.2-1.0); TOT PROT 8.7 g/dl (6.4-8.2)
[2018-03-10 08:46] LABS: ALK PHOS 113 U/L (45-117)
[2018-03-10] MEDS ORDERED: PROPOFOL 20 ML ONE (09:13)
[2018-03-10] MEDS ORDERED: LIDOCAINE HCL/PF 2% SDV 5ML VIAL ONE (09:13)
[2018-03-10] MEDS ORDERED: ROCURONIUM BROMIDE 50 MG/5 ML VIAL ONE (09:14)
[2018-03-10] MEDS ORDERED: ONDANSETRON 4 MG/2 ML VIAL ONE (09:23)
[2018-03-10] MEDS ORDERED: DEXAMETHASONE SOD PHOSPHATE 4 MG/1 ML VIAL ONE (09:23)
[2018-03-10] MEDS ORDERED: cefOXitin SODIUM 2 GM VIAL (RESTRICTED TO ID) IVPB ONE (09:37)
[2018-03-10] MEDS ORDERED: PANTOPRAZOLE SODIUM 40 MG VIAL IVPUSH SCH (10:00)
[2018-03-10] MEDS ORDERED: BUPIVACAINE HCL/PF 0.25% (2.5MG/ML) 10 ML VIAL ONE ×2 (12:27→12:30)
[2018-03-10] MEDS ORDERED: BUPIVACAINE HCL/PF 0.25% (2.5MG/ML) 10 ML VIAL IJ ONE (12:32)
--- NOTE | 2018-03-10 13:29 | OP ---
Operative Note - Note: Operative Date: 03/10/18 Pre-Operative Diagnosis: acute cholecystitis Operation: laparoscopic partial cholecystectomy Findings: tense gallbladder full of small yellow stones; decompressed of ~30ml bile; significant inflammation and edema obscuring base of gallbladder and cystic structures; multiple holes in gb with stone spillage - all visible stones ultimately retrieved, gb transected above base/infundibulum and majority removed with stones; residual irrigated and stones retrieved, mucosa cauterized , no bile return from cystic duct; 19Fr Macho drain left in fossa/RUQ to bulb suction Post-Operative Diagnosis: Other (acute on chronic cholecystitis) Surgeon: Willie Fall High Lift Mule Operator: Riki Sheffield Anesthesiologist/CARD DOFFER: Jamil Hendrickson Anesthesia: General, Local (20ml 0.25% marcaine) Specimens Removed: partial gallbladder to pathology with multiple stones Estimated Blood Loss (mls): 30 Drains & Tubes with Location: 19Fr Macho drain in RUQ/gb fossa to bulb suction Fluid Volume Replaced (mls): 1,800 (crystalloid) Operative Report Dictated: Yes
[2018-03-10] MEDS ORDERED: oxyCODONE HCL 5 MG TABLET PO PRN ×2 (13:34→13:47)
[2018-03-10] MEDS ORDERED: morphine SULFATE 4 MG/ML VIAL IVPUSH PRN ×2 (13:42→13:47)
[2018-03-10] MEDS ORDERED: LACTATED RINGERS SOLUTION 1,000 ML/1,000 ML INFUS.BAG IV SCH (13:47)
[2018-03-10] MEDS ORDERED: ONDANSETRON 4 MG/2 ML VIAL IVPUSH PRN (13:47)
--- NOTE | 2018-03-10 14:39 | CON.ID ---
Consult - History of Present Illness History of Present Illness: Asked to evaluate this 57 y.o. female with PMH of obesity, anxiety/panic disorder, GERD, s/p abdominoplasty, and history of intermittent abd pain who presented with c/o of RUQ abdominal pain. Pt states the pain began the night prior to presentation after eating a meal and was associated with nausea and vomiting episodes. The pain subsequently worsened and became persistent. Pt has been afebrile otherwise and offered no other specific complaints. Imaging studies revealed multiple gallstones and HIDA showed a contracted GB with no visualization after 2 hours. In the OR she was noted to have GB inflammation with multiple holes. Pt is now s/p lap partial cholecystectomy with drain in place. She is alert, afebrile with pain controlled. - History Source History Provided By: Patient, Medical Record Limitations to Obtaining History: No Limitations - Past Medical History Gastrointestinal: Yes: GERD Hepatobiliary: Yes: Cholelithiasis ...: No Psych: Yes: Anxiety, Panic - Past Surgical History Additional Surgical History: left lower leg fracture surgery 5y ago; abdominoplasty in [place] - Alcohol/Substance Use Hx Alcohol Use: No History of Substance Use: reports: None - Smoking History Smoking history: Never smoked Have you smoked in the past 12 months: No Aproximately how many cigarettes per day: 0 - Social History ADL: Independent Home Medications - Allergies Allergies/Adverse Reactions: Allergies Allergy/AdvReac Type Severity Reaction Status Date / Time meperidine HCl [From Demerol] Allergy Verified 03/09/18 07:59 - Home Medications Home Medications: Ambulatory Orders Paroxetine HCl 20 mg PO HS 12/01/15 Zolpidem Tartrate [Ambien] 5 mg PO HS PRN 04/27/16 Pantoprazole Sodium [Protonix] 40 mg PO DAILY #30 tablet. 09/01/17 Family Disease History - Family Disease History Family Disease History: Heart Disease: Father (heart attack), Other: Mother ( liver cirrhosis), Sister (3 sisters had cholecystectomies) Review of Systems - Review of Systems Constitutional: reports: Weakness Eyes: reports: No Symptoms HENT: reports: No Symptoms Neck: reports: No Symptoms Cardiovascular: reports: No Symptoms Respiratory: reports: No Symptoms Gastrointestinal: reports: Abdominal Pain Genitourinary: reports: No Symptoms Musculoskeletal: reports: No Symptoms Integumentary: reports: No Symptoms Neurological: reports: No Symptoms Hematology/Lymphatic: reports: No Symptoms Psychiatric: reports: No Symptoms Physical Exam Vital Signs: Vital Signs Temperature 98.7 F 03/10/18 14:15 Pulse Rate 94 H 03/10/18 14:15 Respiratory Rate 18 03/10/18 14:15 Blood Pressure 134/73 03/10/18 14:15 O2 Sat by Pulse Oximetry (%) 95 03/10/18 14:15 Constitutional: Yes: No Distress, Calm Neck: Yes: Supple Cardiovascular: Yes: Regular Rate and Rhythm Respiratory: Yes: Regular Gastrointestinal: Yes: Distention, Tenderness, Other (RUQ drain with sanguinous drainage) Extremities: Yes: WNL Wound/Incision: Yes: Dressing Dry and Intact Neurological: Yes: Alert, Oriented Labs: CBC, BMP 03/10/18 06:20 03/10/18 06:20 Imaging - Results Ultrasound: Report Reviewed (HIDA report reviewed) Problem List - Problems (1) Calculus of gallbladder with acute cholecystitis without obstruction Code(s): K80.00 - CALCULUS OF GALLBLADDER W ACUTE CHOLECYST W/O OBSTRUCTION (2) Cholelithiasis Code(s): K80.20 - CALCULUS OF GALLBLADDER W/O CHOLECYSTITIS W/O OBSTRUCTION Qualifiers: Cholelithiasis location: other site Biliary obstruction: without biliary obstruction Qualified Code(s): K80.80 - Other cholelithiasis without obstruction (3) Generalized anxiety disorder with panic attacks Code(s): F41.1 - GENERALIZED ANXIETY DISORDER; F41.0 - PANIC DISORDER [EPISODIC PAROXYSMAL ANXIETY] (4) Obesity due to excess calories without serious comorbidity Code(s): E66.09 - OTHER OBESITY DUE TO EXCESS CALORIES Qualifiers: Obesity classification: adult class 2 (BMI 35 - 39.9) Body mass index: BMI 36.0-36.9 Qualified Code(s): E66.09 - Other obesity due to excess calories; Z68.36 - Body mass index (BMI) 36.0-36.9, adult (5) RUQ abdominal pain Code(s): R10.11 - RIGHT UPPER QUADRANT PAIN (6) GERD (gastroesophageal reflux disease) Code(s): K21.9 - GASTRO-ESOPHAGEAL REFLUX DISEASE WITHOUT ESOPHAGITIS Qualifiers: Esophagitis presence: without esophagitis Qualified Code(s): K21.9 - Gastro -esophageal reflux disease without esophagitis Assessment/Plan 57 y.o. female with obesity, anxiety/panic disorder, GERD and intermittent abd pain in the past presents with c/o persistent RUQ intense pain and vomiting episodes Acute Cholecystitis s/p lap partial cholecytectomy/drain POD#0 -- has been started on Cefoxitin -- monitor wbc, vitals closely -- surgical f/u pt currently alert, without acute distress Thank you
[2018-03-10] MEDS ORDERED: ACETAMINOPHEN 325 MG TABLET (FP) PO SCH (15:00)
[2018-03-10] MEDS: ACETAMINOPHEN 325 MG TABLET (FP) PO SCH ×2 (15:18→21:15)
[2018-03-10] MEDS ORDERED: PANTOPRAZOLE SODIUM 40 MG VIAL IVPUSH ONE (15:18)
[2018-03-10] MEDS ORDERED: PT OWN MED DRAWER 7, Y5N ONE ×3 (15:30→23:44)
[2018-03-10] MEDS: IBUPROFEN 600 MG TABLET (FP) PO SCH (17:15)
[2018-03-10] MEDS ORDERED: CEFOXITIN SODIUM 2 GM in DEXTROSE 5%-WATER - 100 ML IVPB SCH (18:00)
[2018-03-10] MEDS ORDERED: IBUPROFEN 600 MG TABLET (FP) PO SCH (18:00)
[2018-03-10] MEDS: PARoxetine HCL 20 MG TABLET (FP) PO SCH (21:14)
[2018-03-10] MEDS: ZOLPIDEM TARTRATE 5 MG TABLET PO PRN (21:14)
[2018-03-11] MEDS: IBUPROFEN 600 MG TABLET (FP) PO SCH ×4 (00:29→17:40)
[2018-03-11] MEDS ORDERED: PT OWN MED DRAWER 7, Y5N ONE ×3 (01:54→15:39)
[2018-03-11] MEDS: CEFOXITIN SODIUM 2 GM in DEXTROSE 5%-WATER - 100 ML IVPB SCH ×3 (02:01→19:06)
[2018-03-11] MEDS: ACETAMINOPHEN 325 MG TABLET (FP) PO SCH ×4 (02:50→21:50)
--- NOTE | 2018-03-11 08:08 | PN ---
Progress Note, Physician Chief Complaint: Abdominal pain Cholecyctitis History of Present Illness: NAD No Nausea/vomiting overnight Incisional pain on movement Drain and dressing intact. draining sanguinous fluid - Current Medication List Current Medications: Active Medications Acetaminophen (Tylenol -) 650 mg PO Q6H [facility] Last Admin: 03/11/18 02:50 Dose: 650 mg Cefoxitin Sodium 2 gm/ (Dextrose) 100 mls @ 200 mls/hr IVPB Q8H-IV [facility] Last Admin: 03/11/18 02:01 Dose: 200 mls/hr Ibuprofen (Motrin -) 600 mg PO Q6HPO [facility] Last Admin: 03/11/18 06:16 Dose: 600 mg Morphine Sulfate (Morphine Sulfate) 4 mg IVPUSH Q3H PRN PRN Reason: Pain Level 7 - 10 BREAKTHROUGH Ondansetron HCl (Zofran Injection) 4 mg IVPUSH Q6H PRN PRN Reason: NAUSEA AND/OR VOMITING Oxycodone HCl (Roxicodone -) 5 mg PO Q6H PRN PRN Reason: Pain Level 7 - 10 BREAKTHROUGH Pantoprazole Sodium (Protonix -) 40 mg PO DAILY [facility] Paroxetine HCl (Paxil -) 20 mg PO HS [facility] Last Admin: 03/10/18 21:14 Dose: 20 mg Zolpidem Tartrate (Ambien -) 5 mg PO HS PRN PRN Reason: INSOMNIA Last Admin: 03/10/18 21:14 Dose: 5 mg - Objective Vital Signs: Vital Signs Temperature 98.1 F 03/11/18 06:56 Pulse Rate 66 03/11/18 06:56 Respiratory Rate 20 03/11/18 06:56 Blood Pressure 120/67 03/11/18 06:56 O2 Sat by Pulse Oximetry (%) 97 03/10/18 21:00 Constitutional: Yes: Well Nourished, No Distress, Calm Cardiovascular: Yes: Regular Rate and Rhythm Respiratory: Yes: Regular Gastrointestinal: Yes: Normal Bowel Sounds, Soft Musculoskeletal: Yes: WNL Extremities: Yes: WNL Edema: No Wound/Incision: Yes: Dressing Dry and Intact Neurological: Yes: Alert, Oriented Psychiatric: Yes: Alert, Oriented Labs: CBC, BMP 03/10/18 06:20 03/10/18 06:20 INR, PTT INR 1.11 (0.83-1.09) H 03/09/18 20:45 Problem List - Problems (1) Calculus of gallbladder with acute cholecystitis without obstruction Assessment/Plan: -POD #1 lap partial cholecyctectomy -Hida scan + for acute cholecyctitis -Labs from today pending -On IV cefoxitin -Surgery consult -GI consult -Pain management: morphine,toradol and acetaminophen -Encouraged to increase PO fluids Code(s): K80.00 - CALCULUS OF GALLBLADDER W ACUTE CHOLECYST W/O OBSTRUCTION (2) Cholelithiasis Code(s): K80.20 - CALCULUS OF GALLBLADDER W/O CHOLECYSTITIS W/O OBSTRUCTION Qualifiers: Cholelithiasis location: other site Biliary obstruction: without biliary obstruction Qualified Code(s): K80.80 - Other cholelithiasis without obstruction Assessment/Plan see problem list
--- NOTE | 2018-03-11 08:14 | PN ---
Progress Note (short form) - Note Progress Note: Anesthesia Post op Pt seen and examined S:alert and awake O: Vital Signs Temperature 98.1 F 03/11/18 06:56 Pulse Rate 66 03/11/18 06:56 Respiratory Rate 20 03/11/18 06:56 Blood Pressure 120/67 03/11/18 06:56 O2 Sat by Pulse Oximetry (%) 97 03/10/18 21:00 A/P:Current Active Problems Calculus of gallbladder with acute cholecystitis without obstruction (Acute) Calculus of gallbladder without cholecystitis without obstruction (Acute) Cholelithiasis (Acute) Generalized anxiety disorder with panic attacks (Acute) Obesity due to excess calories without serious comorbidity (Acute) Positive Bush's Sign (Acute) RUQ abdominal pain (Acute) s/p lap cholecystectomy Doing well post op Continue current care Avery York MD
[2018-03-11 08:15] LABS: BASO % 0.1 % (0-2.0); EOS % 0.2 % (0-4.5); HEMATOCRIT 27.8 % (32.4-45.2); HEMOGLOBIN 9.4 GM/dL (10.7-15.3); LYMPH % 21.3 % (8-40); MCH 30.7 pg (25.7-33.7); MCHC 33.9 g/dl (32.0-36.0); MEAN CELL VOLUME 90.7 fl (80-96); MEAN PLT VOLUME 9.5 fl (7.5-11.1); MONO % 8.2 % (3.8-10.2); NEUT % 70.2 % (42.8-82.8); PLATELET COUNT 179 K/MM3 (134-434); RBC 3.07 M/mm3 (3.60-5.2); RDW 14.1 % (11.6-15.6); WHITE BLOOD COUNT 8.8 K/mm3 (4.0-10.0)
[2018-03-11 08:58] LABS: CHLORIDE 103 mmol/L (98-107); POTASSIUM 4.2 mmol/L (3.5-5.1); SODIUM 139 mmol/L (136-145)
[2018-03-11] MEDS: PANTOPRAZOLE 40 MG TABLET (FP) PO SCH (09:11)
[2018-03-11 09:16] LABS: ALK PHOS 79 U/L (45-117); ANION GAP 9 MMOL/L (8-16); BILIRUBIN,TOTAL 0.3 mg/dL (0.2-1.0); BLOOD UREA NITROGEN 12 mg/dL (7-18); CALCIUM 8.4 mg/dL (8.5-10.1); CO2 27 mmol/L (21-32); CREATININE 0.7 mg/dL (0.55-1.02); GLUCOSE,RANDOM 86 mg/dL (74-106); LIPASE 56 U/L (73-393); SGOT/AST 78 U/L (15-37); SGPT/ALT 68 U/L (12-78); TOT PROT 6.8 g/dl (6.4-8.2)
[2018-03-11] MEDS ORDERED: PANTOPRAZOLE SODIUM 40 MG VIAL IVPUSH SCH (10:00)
--- NOTE | 2018-03-11 11:49 | PN ---
Progress Note, Physician History of Present Illness: Pt with acute on chronic cholecystitis, s/p laparoscopic partial cholecystectomy. Macho drain with 150ml out postop, 125ml so far today, now bilious/serosang. Pt ambulating, voiding, tolerating diet. No nausea or fever. Pain minimal, has not taken all pain meds offered. Pain a little more today than yesterday, mostly when moving around. - Current Medication List Current Medications: Active Medications Acetaminophen (Tylenol -) 650 mg PO Q6H [facility] Last Admin: 03/11/18 09:11 Dose: Not Given Cefoxitin Sodium 2 gm/ (Dextrose) 100 mls @ 200 mls/hr IVPB Q8H-IV [facility] Last Admin: 03/11/18 09:11 Dose: 200 mls/hr Ibuprofen (Motrin -) 600 mg PO Q6HPO [facility] Last Admin: 03/11/18 06:16 Dose: 600 mg Morphine Sulfate (Morphine Sulfate) 4 mg IVPUSH Q3H PRN PRN Reason: Pain Level 7 - 10 BREAKTHROUGH Ondansetron HCl (Zofran Injection) 4 mg IVPUSH Q6H PRN PRN Reason: NAUSEA AND/OR VOMITING Oxycodone HCl (Roxicodone -) 5 mg PO Q6H PRN PRN Reason: Pain Level 7 - 10 BREAKTHROUGH Pantoprazole Sodium (Protonix -) 40 mg PO DAILY [facility] Last Admin: 03/11/18 09:11 Dose: 40 mg Paroxetine HCl (Paxil -) 20 mg PO HS [facility] Last Admin: 03/10/18 21:14 Dose: 20 mg Zolpidem Tartrate (Ambien -) 5 mg PO HS PRN PRN Reason: INSOMNIA Last Admin: 03/10/18 21:14 Dose: 5 mg - Objective Vital Signs: Vital Signs Temperature 98.1 F 03/11/18 06:56 Pulse Rate 66 03/11/18 06:56 Respiratory Rate 20 03/11/18 06:56 Blood Pressure 120/67 03/11/18 06:56 O2 Sat by Pulse Oximetry (%) 97 03/10/18 21:00 Intake & Output 03/10/18 03/11/18 03/11/18 23:59 07:59 15:59 Intake Total 600 300 300 Output Total 150 125 Balance 600 150 175 Intake: IV 500 SL 500 IVPB 100 100 Oral 200 300 Output: Drainage 150 125 Right Abdomen 150 125 Other: Voiding Method Toilet Toilet # Unmeasured Voids Void 1 Constitutional: Yes: No Distress, Calm, Obese Eyes: Yes: Conjunctiva Clear, EOM Intact. No: Sclera Icterus HENT: Yes: Atraumatic, Normocephalic Gastrointestinal: Yes: Soft, Abdomen, Obese, Distention (mild), Tenderness ( mild RUQ/incisional), Other (drain to bulb suction, ~1/2 full with brown liquid , small thin clot strand - emptied for 65ml). No: Tenderness, Rebound Extremities: No: Cool, Cyanosis Integumentary: Yes: Incision (x4 dressed), Tattoos. No: Jaundice, Rash Wound/Incision: Yes: Dressing Dry and Intact (x4 - drain dressing with some serous staining under tegaderm). No: Dressing Removed Neurological: Yes: Alert, Oriented. No: Unsteady Gait Labs: CBC, BMP 03/11/18 07:12 03/11/18 07:12 CMP Sodium 139 mmol/L (136-145) 03/11/18 07:12 Potassium 4.2 mmol/L (3.5-5.1) 03/11/18 07:12 Chloride 103 mmol/L (98-107) 03/11/18 07:12 Carbon Dioxide 27 mmol/L (21-32) 03/11/18 07:12 Anion Gap 9 MMOL/L (8-16) 03/11/18 07:12 BUN 12 mg/dL (7-18) 03/11/18 07:12 Creatinine 0.7 mg/dL (0.55-1.02) 03/11/18 07:12 Creat Clearance w eGFR > 60 (>60) 03/11/18 07:12 Random Glucose 86 mg/dL (74-106) 03/11/18 07:12 Hemoglobin A1c % 6.0 % (4.8-6.0) 03/09/18 12:02 Calcium 8.4 mg/dL (8.5-10.1) L 03/11/18 07:12 Total Bilirubin 0.3 mg/dL (0.2-1.0) 03/11/18 07:12 AST 78 U/L (15-37) H 03/11/18 07:12 ALT 68 U/L (12-78) 03/11/18 07:12 Alkaline Phosphatase 79 U/L (45-117) D 03/11/18 07:12 Total Protein 6.8 g/dl (6.4-8.2) 03/11/18 07:12 Albumin 3.0 g/dl (3.4-5.0) L 03/11/18 07:12 Lipase 56 U/L (73-393) L 03/11/18 07:12 Serum , Qual Negative 03/10/18 06:00 wbc normal LFTs ok lytes ok Problem List - Problems (1) Calculus of gallbladder with acute cholecystitis without obstruction Assessment/Plan: symptomatic cholelithiasis with cystic duct obstruction by HIDA POD1 s/p laparoscopic partial cholecystectomy for acute on chronic cholecystitis with numerous small yellow stones Macho drain left, now with bilious drainage continue Cefoxitin, ID on board GI/DVT prophylaxis pain controlled with nonnarcotic meds encouraged to ambulate/OOB/use IS pt will need drain teaching before d/c will have GI followup to consider ERCP with stent for possible bile leak monitor drainage trend labs Discussed with IAN Santoyo Code(s): K80.00 - CALCULUS OF GALLBLADDER W ACUTE CHOLECYST W/O OBSTRUCTION (2) Postoperative bile leak Assessment/Plan: see above will have GI follow up to assess monitor drain output trend labs consider imaging if bilious output persists vs ERCP Code(s): K91.89 - OTH POSTPROCEDURAL COMPLICATIONS AND DISORDERS OF DGSTV SYS; K83.8 - OTHER SPECIFIED DISEASES OF BILIARY TRACT (3) RUQ abdominal pain Assessment/Plan: improved Code(s): R10.11 - RIGHT UPPER QUADRANT PAIN (4) GERD (gastroesophageal reflux disease) Assessment/Plan: PPI daily Code(s): K21.9 - GASTRO-ESOPHAGEAL REFLUX DISEASE WITHOUT ESOPHAGITIS Qualifiers: Esophagitis presence: without esophagitis Qualified Code(s): K21.9 - Gastro -esophageal reflux disease without esophagitis (5) Obesity due to excess calories without serious comorbidity Code(s): E66.09 - OTHER OBESITY DUE TO EXCESS CALORIES Qualifiers: Obesity classification: adult class 2 (BMI 35 - 39.9) Body mass index: BMI 36.0-36.9 Qualified Code(s): E66.09 - Other obesity due to excess calories; Z68.36 - Body mass index (BMI) 36.0-36.9, adult (6) Generalized anxiety disorder with panic attacks Assessment/Plan: ok to continue home meds Code(s): F41.1 - GENERALIZED ANXIETY DISORDER; F41.0 - PANIC DISORDER [EPISODIC PAROXYSMAL ANXIETY]
--- NOTE | 2018-03-11 14:46 | PN ---
Progress Note, Physician History of Present Illness: Pt states she feels well. Tolerating diet. Pain appears to be controlled. Has no specific complaints. - Current Medication List Current Medications: Active Medications Acetaminophen (Tylenol -) 650 mg PO Q6H [facility] Last Admin: 03/11/18 09:11 Dose: Not Given Cefoxitin Sodium 2 gm/ (Dextrose) 100 mls @ 200 mls/hr IVPB Q8H-IV [facility] Last Admin: 03/11/18 09:11 Dose: 200 mls/hr Ibuprofen (Motrin -) 600 mg PO Q6HPO [facility] Last Admin: 03/11/18 12:32 Dose: 600 mg Morphine Sulfate (Morphine Sulfate) 4 mg IVPUSH Q3H PRN PRN Reason: Pain Level 7 - 10 BREAKTHROUGH Ondansetron HCl (Zofran Injection) 4 mg IVPUSH Q6H PRN PRN Reason: NAUSEA AND/OR VOMITING Oxycodone HCl (Roxicodone -) 5 mg PO Q6H PRN PRN Reason: Pain Level 7 - 10 BREAKTHROUGH Pantoprazole Sodium (Protonix -) 40 mg PO DAILY [facility] Last Admin: 03/11/18 09:11 Dose: 40 mg Paroxetine HCl (Paxil -) 20 mg PO HS [facility] Last Admin: 03/10/18 21:14 Dose: 20 mg Zolpidem Tartrate (Ambien -) 5 mg PO HS PRN PRN Reason: INSOMNIA Last Admin: 03/10/18 21:14 Dose: 5 mg - Objective Vital Signs: Vital Signs Temperature 98.1 F 03/11/18 06:56 Pulse Rate 66 03/11/18 06:56 Respiratory Rate 20 03/11/18 06:56 Blood Pressure 120/67 03/11/18 06:56 O2 Sat by Pulse Oximetry (%) 97 03/10/18 21:00 Constitutional: Yes: No Distress, Calm Neck: Yes: Supple Cardiovascular: Yes: Regular Rate and Rhythm Respiratory: Yes: Regular Gastrointestinal: Yes: Normal Bowel Sounds, Soft Genitourinary: Yes: WNL Musculoskeletal: Yes: WNL Extremities: Yes: WNL Wound/Incision: Yes: Other (RUQ drain with mildly bilious/serosanguinous drainage, dressings intact) Neurological: Yes: Alert, Oriented Labs: CBC, BMP 03/11/18 07:12 03/11/18 07:12 INR, PTT INR 1.11 (0.83-1.09) H 03/09/18 20:45 Problem List - Problems (1) Calculus of gallbladder with acute cholecystitis without obstruction Code(s): K80.00 - CALCULUS OF GALLBLADDER W ACUTE CHOLECYST W/O OBSTRUCTION (2) Cholelithiasis Code(s): K80.20 - CALCULUS OF GALLBLADDER W/O CHOLECYSTITIS W/O OBSTRUCTION Qualifiers: Cholelithiasis location: other site Biliary obstruction: without biliary obstruction Qualified Code(s): K80.80 - Other cholelithiasis without obstruction (3) Generalized anxiety disorder with panic attacks Code(s): F41.1 - GENERALIZED ANXIETY DISORDER; F41.0 - PANIC DISORDER [EPISODIC PAROXYSMAL ANXIETY] (4) Obesity due to excess calories without serious comorbidity Code(s): E66.09 - OTHER OBESITY DUE TO EXCESS CALORIES Qualifiers: Obesity classification: adult class 2 (BMI 35 - 39.9) Body mass index: BMI 36.0-36.9 Qualified Code(s): E66.09 - Other obesity due to excess calories; Z68.36 - Body mass index (BMI) 36.0-36.9, adult (5) RUQ abdominal pain Code(s): R10.11 - RIGHT UPPER QUADRANT PAIN (6) GERD (gastroesophageal reflux disease) Code(s): K21.9 - GASTRO-ESOPHAGEAL REFLUX DISEASE WITHOUT ESOPHAGITIS Qualifiers: Esophagitis presence: without esophagitis Qualified Code(s): K21.9 - Gastro -esophageal reflux disease without esophagitis Assessment/Plan 57 y.o. female with obesity, anxiety/panic disorder, GERD and intermittent abd pain in the past presents with c/o persistent RUQ intense pain and vomiting episodes Acute Cholecystitis s/p lap partial cholecytectomy/drain POD#1 -- continue antibiotics -- for GI evaluation , biliary leak -- pt afebrile, without leukocytosis pt currently alert, without acute distress
--- NOTE | 2018-03-11 14:52 | PN ---
Progress Note (short form) - Note Progress Note: Asked by Dr Fall to follow up on patient as she is having bilious drainage from J-P tube. Case d/w Dr Fall. Pt had complicated gallbladder surgery, drain left in place. Will follow output to decide whether endoscopic intervention (ERCP with sphincterotomy or stent) is needed. Most of these cases resolve without endoscopic intervention as long as there is no CBD obstruction, i.e., CBD stone.
[2018-03-11] MEDS: PARoxetine HCL 20 MG TABLET (FP) PO SCH (22:03)
[2018-03-11] MEDS: ZOLPIDEM TARTRATE 5 MG TABLET PO PRN (22:05)
[2018-03-12] MEDS: IBUPROFEN 600 MG TABLET (FP) PO SCH ×4 (00:50→17:13)
[2018-03-12] MEDS: CEFOXITIN SODIUM 2 GM in DEXTROSE 5%-WATER - 100 ML IVPB SCH ×3 (01:08→18:19)
[2018-03-12] MEDS: ACETAMINOPHEN 325 MG TABLET (FP) PO SCH ×4 (04:43→21:56)
[2018-03-12] MEDS: PANTOPRAZOLE 40 MG TABLET (FP) PO SCH ×2 (08:57→09:03)
--- NOTE | 2018-03-12 09:44 | PN ---
Progress Note (short form) - Note Progress Note: Bile drainage continues but it appears to be decreasing. Past 24 hrs of ANEL 8-hr drainages: 150 cc then 125 cc then 75 cc. If this trend continues then there will be no need for ERCP. Pt has no fever, is tolerating diet.
--- NOTE | 2018-03-12 09:57 | PN ---
Progress Note, Physician History of Present Illness: Events noted. Pt without specific complaints. Remains afebrile, without pain. No BM as of yet. - Current Medication List Current Medications: Active Medications Acetaminophen (Tylenol -) 650 mg PO Q6H [facility] Last Admin: 03/12/18 08:58 Dose: Not Given Cefoxitin Sodium 2 gm/ (Dextrose) 100 mls @ 200 mls/hr IVPB Q8H-IV [facility] Last Admin: 03/12/18 08:59 Dose: 200 mls/hr Ibuprofen (Motrin -) 600 mg PO Q6HPO [facility] Last Admin: 03/12/18 06:28 Dose: 600 mg Ondansetron HCl (Zofran Injection) 4 mg IVPUSH Q6H PRN PRN Reason: NAUSEA AND/OR VOMITING Oxycodone HCl (Roxicodone -) 5 mg PO Q6H PRN PRN Reason: Pain Level 7 - 10 BREAKTHROUGH Pantoprazole Sodium (Protonix -) 40 mg PO DAILY [facility] Last Admin: 03/12/18 09:03 Dose: Not Given Paroxetine HCl (Paxil -) 20 mg PO HS [facility] Last Admin: 03/11/18 22:03 Dose: 20 mg Zolpidem Tartrate (Ambien -) 5 mg PO HS PRN PRN Reason: INSOMNIA Last Admin: 03/11/18 22:05 Dose: 5 mg - Objective Vital Signs: Vital Signs Temperature 98.6 F 03/12/18 09:00 Pulse Rate 70 03/12/18 09:00 Respiratory Rate 18 03/12/18 09:00 Blood Pressure 131/61 03/12/18 09:00 O2 Sat by Pulse Oximetry (%) 98 03/11/18 21:00 Constitutional: Yes: No Distress, Calm Neck: Yes: Supple Cardiovascular: Yes: Regular Rate and Rhythm Respiratory: Yes: Regular Gastrointestinal: Yes: Normal Bowel Sounds, Soft, Other (RUQ drain with bilious drainage) Edema: No Wound/Incision: Yes: Dressing Dry and Intact Neurological: Yes: Alert Labs: CBC, BMP 03/11/18 07:12 03/11/18 07:12 INR, PTT INR 1.11 (0.83-1.09) H 03/09/18 20:45 CMP Sodium 139 mmol/L (136-145) 03/11/18 07:12 Potassium 4.2 mmol/L (3.5-5.1) 03/11/18 07:12 Chloride 103 mmol/L (98-107) 03/11/18 07:12 Carbon Dioxide 27 mmol/L (21-32) 03/11/18 07:12 Anion Gap 9 MMOL/L (8-16) 03/11/18 07:12 BUN 12 mg/dL (7-18) 03/11/18 07:12 Creatinine 0.7 mg/dL (0.55-1.02) 03/11/18 07:12 Creat Clearance w eGFR > 60 (>60) 03/11/18 07:12 Random Glucose 86 mg/dL (74-106) 03/11/18 07:12 Hemoglobin A1c % 6.0 % (4.8-6.0) 03/09/18 12:02 Calcium 8.4 mg/dL (8.5-10.1) L 03/11/18 07:12 Total Bilirubin 0.3 mg/dL (0.2-1.0) 03/11/18 07:12 AST 78 U/L (15-37) H 03/11/18 07:12 ALT 68 U/L (12-78) 03/11/18 07:12 Alkaline Phosphatase 79 U/L (45-117) D 03/11/18 07:12 Total Protein 6.8 g/dl (6.4-8.2) 03/11/18 07:12 Albumin 3.0 g/dl (3.4-5.0) L 03/11/18 07:12 Lipase 56 U/L (73-393) L 03/11/18 07:12 Serum , Qual Negative 03/10/18 06:00 Problem List - Problems (1) Calculus of gallbladder with acute cholecystitis without obstruction Code(s): K80.00 - CALCULUS OF GALLBLADDER W ACUTE CHOLECYST W/O OBSTRUCTION (2) Cholelithiasis Code(s): K80.20 - CALCULUS OF GALLBLADDER W/O CHOLECYSTITIS W/O OBSTRUCTION Qualifiers: Cholelithiasis location: other site Biliary obstruction: without biliary obstruction Qualified Code(s): K80.80 - Other cholelithiasis without obstruction (3) Generalized anxiety disorder with panic attacks Code(s): F41.1 - GENERALIZED ANXIETY DISORDER; F41.0 - PANIC DISORDER [EPISODIC PAROXYSMAL ANXIETY] (4) Obesity due to excess calories without serious comorbidity Code(s): E66.09 - OTHER OBESITY DUE TO EXCESS CALORIES Qualifiers: Obesity classification: adult class 2 (BMI 35 - 39.9) Body mass index: BMI 36.0-36.9 Qualified Code(s): E66.09 - Other obesity due to excess calories; Z68.36 - Body mass index (BMI) 36.0-36.9, adult (5) RUQ abdominal pain Code(s): R10.11 - RIGHT UPPER QUADRANT PAIN (6) GERD (gastroesophageal reflux disease) Code(s): K21.9 - GASTRO-ESOPHAGEAL REFLUX DISEASE WITHOUT ESOPHAGITIS Qualifiers: Esophagitis presence: without esophagitis Qualified Code(s): K21.9 - Gastro -esophageal reflux disease without esophagitis Assessment/Plan 57 y.o. female with obesity, anxiety/panic disorder, GERD and intermittent abd pain in the past presents with c/o persistent RUQ intense pain and vomiting episodes Acute Cholecystitis s/p lap partial cholecytectomy/drain POD#2 -- continue antibiotics -- monitoring of amt of biliary drainage, to assess need for ERCP -- pt afebrile, without leukocytosis continue close monitoring
--- NOTE | 2018-03-12 10:55 | PN ---
Progress Note, Physician History of Present Illness: Pt with acute on chronic cholecystitis, s/p laparoscopic partial cholecystectomy. Macho drain with 275ml out yesterday, bilious/serosang; 75 so far this morning. Pt ambulating, voiding, tolerating diet. No nausea or fever. Pain minimal/incisional, has not taken all pain meds offered. Passing flatus but no BM yet. Still on antibiotics, wbc normal. - Current Medication List Current Medications: Active Medications Acetaminophen (Tylenol -) 650 mg PO Q6H [facility] Last Admin: 03/12/18 08:58 Dose: Not Given Cefoxitin Sodium 2 gm/ (Dextrose) 100 mls @ 200 mls/hr IVPB Q8H-IV [facility] Last Admin: 03/12/18 08:59 Dose: 200 mls/hr Ibuprofen (Motrin -) 600 mg PO Q6HPO [facility] Last Admin: 03/12/18 06:28 Dose: 600 mg Ondansetron HCl (Zofran Injection) 4 mg IVPUSH Q6H PRN PRN Reason: NAUSEA AND/OR VOMITING Oxycodone HCl (Roxicodone -) 5 mg PO Q6H PRN PRN Reason: Pain Level 7 - 10 BREAKTHROUGH Pantoprazole Sodium (Protonix -) 40 mg PO DAILY [facility] Last Admin: 03/12/18 09:03 Dose: Not Given Paroxetine HCl (Paxil -) 20 mg PO HS [facility] Last Admin: 03/11/18 22:03 Dose: 20 mg Zolpidem Tartrate (Ambien -) 5 mg PO HS PRN PRN Reason: INSOMNIA Last Admin: 03/11/18 22:05 Dose: 5 mg - Objective Vital Signs: Vital Signs Temperature 98.6 F 03/12/18 09:00 Pulse Rate 70 03/12/18 09:00 Respiratory Rate 18 03/12/18 09:00 Blood Pressure 131/61 03/12/18 09:00 O2 Sat by Pulse Oximetry (%) 98 03/11/18 21:00 Constitutional: Yes: No Distress, Calm, Obese Eyes: Yes: Conjunctiva Clear, EOM Intact. No: Sclera Icterus HENT: Yes: Atraumatic, Normocephalic Gastrointestinal: Yes: Soft, Abdomen, Obese, Tenderness (incisional only) Musculoskeletal: No: Joint Stiffness, Joint Swelling Extremities: No: Cool, Cyanosis Integumentary: Yes: Incision (x4 dressed). No: Jaundice, Rash Wound/Incision: Yes: Clean/Dry, Well Approximated, Steri Strips (x3), Dressing Dry and Intact (x3, drain dressing saturated with serous fluid), Dressing Removed (x4 - drain dressing changed for new gauze and tape), Draining (drain bulb with <25ml bilious/serosang fluid). No: Reddened Neurological: Yes: Alert, Oriented Labs: no new labs Problem List - Problems (1) Calculus of gallbladder with acute cholecystitis without obstruction Assessment/Plan: symptomatic cholelithiasis with cystic duct obstruction by HIDA POD2 s/p laparoscopic partial cholecystectomy for acute on chronic cholecystitis with numerous small yellow stones Macho drain left, bilious drainage continue Cefoxitin per ID, possibly change to PO abx tomorrow GI/DVT prophylaxis pain controlled with nonnarcotic meds prn encouraged to ambulate/OOB/use IS (gets 1250) pt will need drain teaching before d/c GI following in case of need for ERCP monitor drainage trend labs possible d/c tomorrow with drain in place, VNS Code(s): K80.00 - CALCULUS OF GALLBLADDER W ACUTE CHOLECYST W/O OBSTRUCTION (2) Postoperative bile leak Assessment/Plan: see above GI following monitor drain output - decreasing trend labs Code(s): K91.89 - OTH POSTPROCEDURAL COMPLICATIONS AND DISORDERS OF DGSTV SYS; K83.8 - OTHER SPECIFIED DISEASES OF BILIARY TRACT (3) GERD (gastroesophageal reflux disease) Assessment/Plan: PPI daily Code(s): K21.9 - GASTRO-ESOPHAGEAL REFLUX DISEASE WITHOUT ESOPHAGITIS Qualifiers: Esophagitis presence: without esophagitis Qualified Code(s): K21.9 - Gastro -esophageal reflux disease without esophagitis (4) Obesity due to excess calories without serious comorbidity Code(s): E66.09 - OTHER OBESITY DUE TO EXCESS CALORIES Qualifiers: Obesity classification: adult class 2 (BMI 35 - 39.9) Body mass index: BMI 36.0-36.9 Qualified Code(s): E66.09 - Other obesity due to excess calories; Z68.36 - Body mass index (BMI) 36.0-36.9, adult (5) Generalized anxiety disorder with panic attacks Assessment/Plan: ok to continue home meds Code(s): F41.1 - GENERALIZED ANXIETY DISORDER; F41.0 - PANIC DISORDER [EPISODIC PAROXYSMAL ANXIETY]
[2018-03-12 12:19] LABS: BASO % 0.3 % (0-2.0); EOS % 3.3 % (0-4.5); HEMOGLOBIN 9.9 GM/dL (10.7-15.3); LYMPH % 28.5 % (8-40); MCHC 33.1 g/dl (32.0-36.0); MEAN CELL VOLUME 90.6 fl (80-96); MEAN PLT VOLUME 9.7 fl (7.5-11.1); NEUT % 59.9 % (42.8-82.8); PLATELET COUNT 179 K/MM3 (134-434); RBC 3.31 M/mm3 (3.60-5.2); RDW 13.9 % (11.6-15.6); WHITE BLOOD COUNT 7.2 K/mm3 (4.0-10.0)
[2018-03-12 12:45] LABS: ANION GAP 9 MMOL/L (8-16); BLOOD UREA NITROGEN 10 mg/dL (7-18); CALCIUM 8.1 mg/dL (8.5-10.1); CHLORIDE 103 mmol/L (98-107); CO2 27 mmol/L (21-32); GLUCOSE,RANDOM 80 mg/dL (74-106); POTASSIUM 3.7 mmol/L (3.5-5.1); SODIUM 139 mmol/L (136-145)
[2018-03-12 12:49] LABS: ALK PHOS 90 U/L (45-117); BILIRUBIN,TOTAL 0.4 mg/dL (0.2-1.0); CREATININE 1.1 mg/dL (0.55-1.02); SGOT/AST 57 U/L (15-37); SGPT/ALT 60 U/L (12-78); TOT PROT 7.5 g/dl (6.4-8.2)
--- NOTE | 2018-03-12 16:49 | PN ---
Progress Note, Physician - Current Medication List Current Medications: Active Medications Acetaminophen (Tylenol -) 650 mg PO Q6H [facility] Last Admin: 03/12/18 14:57 Dose: Not Given Cefoxitin Sodium 2 gm/ (Dextrose) 100 mls @ 200 mls/hr IVPB Q8H-IV [facility] Last Admin: 03/12/18 08:59 Dose: 200 mls/hr Ibuprofen (Motrin -) 600 mg PO Q6HPO [facility] Last Admin: 03/12/18 13:42 Dose: Not Given Ondansetron HCl (Zofran Injection) 4 mg IVPUSH Q6H PRN PRN Reason: NAUSEA AND/OR VOMITING Oxycodone HCl (Roxicodone -) 5 mg PO Q6H PRN PRN Reason: Pain Level 7 - 10 BREAKTHROUGH Pantoprazole Sodium (Protonix -) 40 mg PO DAILY [facility] Last Admin: 03/12/18 09:03 Dose: Not Given Paroxetine HCl (Paxil -) 20 mg PO HS [facility] Last Admin: 03/11/18 22:03 Dose: 20 mg Zolpidem Tartrate (Ambien -) 5 mg PO HS PRN PRN Reason: INSOMNIA Last Admin: 03/11/18 22:05 Dose: 5 mg - Objective Vital Signs: Vital Signs Temperature 97.6 F 03/12/18 16:05 Pulse Rate 66 03/12/18 16:05 Respiratory Rate 20 03/12/18 16:05 Blood Pressure 128/62 03/12/18 16:05 O2 Sat by Pulse Oximetry (%) 98 03/12/18 09:00 Cardiovascular: Yes: S1, S2 Respiratory: Yes: Regular, CTA Bilaterally Gastrointestinal: Yes: Normal Bowel Sounds, Soft, Tenderness Labs: CBC, BMP 03/12/18 11:48 03/12/18 11:48 INR, PTT INR 1.11 (0.83-1.09) H 03/09/18 20:45 Problem List - Problems (1) Cholelithiasis Assessment/Plan: -POD #2 lap partial cholecyctectomy -Hida scan + for acute cholecyctitis -Labs from today pending -On IV cefoxitin -Surgery consult -GI consult -Pain management: morphine,toradol and acetaminophen -Encouraged to increase PO fluids Code(s): K80.20 - CALCULUS OF GALLBLADDER W/O CHOLECYSTITIS W/O OBSTRUCTION Qualifiers: Cholelithiasis location: other site Biliary obstruction: without biliary obstruction Qualified Code(s): K80.80 - Other cholelithiasis without obstruction
[2018-03-12] MEDS: PARoxetine HCL 20 MG TABLET (FP) PO SCH (21:56)
[2018-03-12] MEDS: ZOLPIDEM TARTRATE 5 MG TABLET PO PRN (21:56)
[2018-03-13] MEDS ORDERED: FAMOTIDINE 20 MG/50 ML IVPB 20 MG/50 ML MG IVPB ONE (00:21)
[2018-03-13] MEDS: IBUPROFEN 600 MG TABLET (FP) PO SCH ×4 (00:42→18:35)
[2018-03-13] MEDS: CEFOXITIN SODIUM 2 GM in DEXTROSE 5%-WATER - 100 ML IVPB SCH ×3 (01:08→18:36)
[2018-03-13] MEDS: ACETAMINOPHEN 325 MG TABLET (FP) PO SCH ×4 (04:23→21:06)
--- NOTE | 2018-03-13 08:25 | PN ---
Progress Note, Physician Chief Complaint: AWAKE ALERT EVENTS AND NOTES REVIEWED STILL HAS DARK BILIOUS DRAINAGE - Current Medication List Current Medications: Active Medications Acetaminophen (Tylenol -) 650 mg PO Q6H [facility] Last Admin: 03/13/18 04:23 Dose: Not Given Cefoxitin Sodium 2 gm/ (Dextrose) 100 mls @ 200 mls/hr IVPB Q8H-IV [facility] Last Admin: 03/13/18 01:08 Dose: 200 mls/hr Ibuprofen (Motrin -) 600 mg PO Q6HPO [facility] Last Admin: 03/13/18 06:57 Dose: 600 mg Ondansetron HCl (Zofran Injection) 4 mg IVPUSH Q6H PRN PRN Reason: NAUSEA AND/OR VOMITING Oxycodone HCl (Roxicodone -) 5 mg PO Q6H PRN PRN Reason: Pain Level 7 - 10 BREAKTHROUGH Pantoprazole Sodium (Protonix -) 40 mg PO DAILY [facility] Last Admin: 03/12/18 09:03 Dose: Not Given Paroxetine HCl (Paxil -) 20 mg PO HS [facility] Last Admin: 03/12/18 21:56 Dose: 20 mg Zolpidem Tartrate (Ambien -) 5 mg PO HS PRN PRN Reason: INSOMNIA Last Admin: 03/12/18 21:56 Dose: 5 mg - Objective Vital Signs: Vital Signs Temperature 98.8 F 03/13/18 06:00 Pulse Rate 69 03/13/18 06:00 Respiratory Rate 18 03/13/18 06:00 Blood Pressure 133/75 03/13/18 06:00 O2 Sat by Pulse Oximetry (%) 98 03/12/18 21:00 Constitutional: Yes: Mild Distress Eyes: Yes: WNL HENT: Yes: WNL Neck: Yes: WNL Cardiovascular: Yes: WNL Respiratory: Yes: WNL Gastrointestinal: Yes: Other (ANEL DRAIN DARK DRAINAGE) Genitourinary: Yes: WNL Musculoskeletal: Yes: WNL Extremities: Yes: WNL Edema: No Peripheral Pulses WNL: Yes Integumentary: Yes: WNL Wound/Incision: Yes: Draining Neurological: Yes: WNL ...Motor Strength: WNL Psychiatric: Yes: WNL Labs: INR, PTT INR 1.11 (0.83-1.09) H 03/09/18 20:45 Problem List - Problems (1) Calculus of gallbladder with acute cholecystitis without obstruction Code(s): K80.00 - CALCULUS OF GALLBLADDER W ACUTE CHOLECYST W/O OBSTRUCTION (2) Cholelithiasis Code(s): K80.20 - CALCULUS OF GALLBLADDER W/O CHOLECYSTITIS W/O OBSTRUCTION Qualifiers: Cholelithiasis location: other site Biliary obstruction: without biliary obstruction Qualified Code(s): K80.80 - Other cholelithiasis without obstruction Assessment/Plan SURGERY FOLLOW UP LAST 24HOURS 50CC DRAINAGE DARK TOLERATING PO DIET +URINE OUTPUT NO BLOOD\OOB TO CHAIR
[2018-03-13 08:26] LABS: BASO % 0.3 % (0-2.0); EOS % 2.6 % (0-4.5); HEMATOCRIT 28.2 % (32.4-45.2); HEMOGLOBIN 9.4 GM/dL (10.7-15.3); LYMPH % 36.2 % (8-40); MCH 30.1 pg (25.7-33.7); MCHC 33.4 g/dl (32.0-36.0); MEAN CELL VOLUME 90.1 fl (80-96); MEAN PLT VOLUME 9.7 fl (7.5-11.1); MONO % 9.8 % (3.8-10.2); NEUT % 51.1 % (42.8-82.8); PLATELET COUNT 183 K/MM3 (134-434); RBC 3.13 M/mm3 (3.60-5.2); WHITE BLOOD COUNT 4.7 K/mm3 (4.0-10.0)
[2018-03-13 08:41] LABS: ALBUMIN 2.9 g/dl (3.4-5.0); ALK PHOS 80 U/L (45-117); ANION GAP 10 MMOL/L (8-16); BILIRUBIN,TOTAL 0.3 mg/dL (0.2-1.0); BLOOD UREA NITROGEN 8 mg/dL (7-18); CALCIUM 8.2 mg/dL (8.5-10.1); CHLORIDE 103 mmol/L (98-107); CO2 27 mmol/L (21-32); CREATININE 0.6 mg/dL (0.55-1.02); GLUCOSE,RANDOM 84 mg/dL (74-106); POTASSIUM 3.9 mmol/L (3.5-5.1); SGOT/AST 40 U/L (15-37); SGPT/ALT 47 U/L (12-78); SODIUM 140 mmol/L (136-145)
[2018-03-13] MEDS ORDERED: PT OWN MED DRAWER 7, Y5N ONE ×2 (10:53→18:34)
[2018-03-13] MEDS: PANTOPRAZOLE 40 MG TABLET (FP) PO SCH (11:02)
[2018-03-13 16:19] LABS: HBsAG SCREEN Negative (Negative)
[2018-03-13] MEDS ORDERED: MAGNESIUM HYDROX 2400MG/30ML ORAL SUSPENSION 30 ML CUP PO ONE (17:54)
--- NOTE | 2018-03-13 18:05 | PN ---
Progress Note, Physician History of Present Illness: Pt afebrile. Without specific complaints. No abd pain, passing gas. - Current Medication List Current Medications: Active Medications Acetaminophen (Tylenol -) 650 mg PO Q6H [facility] Last Admin: 03/13/18 15:25 Dose: Not Given Cefoxitin Sodium 2 gm/ (Dextrose) 100 mls @ 200 mls/hr IVPB Q8H-IV [facility] Last Admin: 03/13/18 11:25 Dose: 200 mls/hr Ibuprofen (Motrin -) 600 mg PO Q6HPO [facility] Last Admin: 03/13/18 13:46 Dose: Not Given Ondansetron HCl (Zofran Injection) 4 mg IVPUSH Q6H PRN PRN Reason: NAUSEA AND/OR VOMITING Pantoprazole Sodium (Protonix -) 40 mg PO DAILY [facility] Last Admin: 03/13/18 11:02 Dose: 40 mg Paroxetine HCl (Paxil -) 20 mg PO HS [facility] Last Admin: 03/12/18 21:56 Dose: 20 mg - Objective Vital Signs: Vital Signs Temperature 97.5 F L 03/13/18 17:14 Pulse Rate 66 03/13/18 17:14 Respiratory Rate 20 03/13/18 17:14 Blood Pressure 131/69 03/13/18 17:14 O2 Sat by Pulse Oximetry (%) 98 03/12/18 21:00 Constitutional: Yes: No Distress, Calm Cardiovascular: Yes: Regular Rate and Rhythm Respiratory: Yes: CTA Bilaterally Gastrointestinal: Yes: Normal Bowel Sounds, Soft, Other (RUQ drain in place) ...Rectal Exam: Yes: WNL Wound/Incision: Yes: Dressing Dry and Intact Labs: CBC, BMP 03/13/18 07:00 03/13/18 07:00 INR, PTT INR 1.11 (0.83-1.09) H 03/09/18 20:45 Problem List - Problems (1) Calculus of gallbladder with acute cholecystitis without obstruction Code(s): K80.00 - CALCULUS OF GALLBLADDER W ACUTE CHOLECYST W/O OBSTRUCTION (2) Cholelithiasis Code(s): K80.20 - CALCULUS OF GALLBLADDER W/O CHOLECYSTITIS W/O OBSTRUCTION Qualifiers: Cholelithiasis location: other site Biliary obstruction: without biliary obstruction Qualified Code(s): K80.80 - Other cholelithiasis without obstruction (3) Generalized anxiety disorder with panic attacks Code(s): F41.1 - GENERALIZED ANXIETY DISORDER; F41.0 - PANIC DISORDER [EPISODIC PAROXYSMAL ANXIETY] (4) Obesity due to excess calories without serious comorbidity Code(s): E66.09 - OTHER OBESITY DUE TO EXCESS CALORIES Qualifiers: Obesity classification: adult class 2 (BMI 35 - 39.9) Body mass index: BMI 36.0-36.9 Qualified Code(s): E66.09 - Other obesity due to excess calories; Z68.36 - Body mass index (BMI) 36.0-36.9, adult (5) RUQ abdominal pain Code(s): R10.11 - RIGHT UPPER QUADRANT PAIN (6) GERD (gastroesophageal reflux disease) Code(s): K21.9 - GASTRO-ESOPHAGEAL REFLUX DISEASE WITHOUT ESOPHAGITIS Qualifiers: Esophagitis presence: without esophagitis Qualified Code(s): K21.9 - Gastro -esophageal reflux disease without esophagitis Assessment/Plan 57 y.o. female with obesity, anxiety/panic disorder, GERD and intermittent abd pain in the past presents with c/o persistent RUQ intense pain and vomiting episodes Acute Cholecystitis s/p lap partial cholecytectomy/drain --plan switch to poo antibiotics -- monitoring of amt of biliary drainage -- pt afebrile continue monitoring temps -- surgery/GI f/u
--- NOTE | 2018-03-13 20:19 | PN ---
Progress Note, Physician History of Present Illness: Pt with acute on chronic cholecystitis, s/p laparoscopic partial cholecystectomy. Macho drain with 105ml out yesterday, bilious/serosang; 45 so far today, interactive marketing strategist in color, <20ml in bulb now. Pt ambulating, voiding, tolerating diet. No nausea or fever. Pain minimal/incisional, has not taken all pain meds offered. Had small, hard BM. Antibiotics per ID. - Current Medication List Current Medications: Active Medications Acetaminophen (Tylenol -) 650 mg PO Q6H [facility] Last Admin: 03/13/18 15:25 Dose: Not Given Cefoxitin Sodium 2 gm/ (Dextrose) 100 mls @ 200 mls/hr IVPB Q8H-IV [facility] Last Admin: 03/13/18 18:36 Dose: 200 mls/hr Ibuprofen (Motrin -) 600 mg PO Q6HPO [facility] Last Admin: 03/13/18 18:35 Dose: Not Given Ondansetron HCl (Zofran Injection) 4 mg IVPUSH Q6H PRN PRN Reason: NAUSEA AND/OR VOMITING Pantoprazole Sodium (Protonix -) 40 mg PO DAILY [facility] Last Admin: 03/13/18 11:02 Dose: 40 mg Paroxetine HCl (Paxil -) 20 mg PO HS [facility] Last Admin: 03/12/18 21:56 Dose: 20 mg - Objective Vital Signs: Vital Signs Temperature 97.5 F L 03/13/18 17:14 Pulse Rate 66 03/13/18 17:14 Respiratory Rate 20 03/13/18 17:14 Blood Pressure 131/69 03/13/18 17:14 O2 Sat by Pulse Oximetry (%) 98 03/13/18 09:00 Constitutional: Yes: No Distress, Calm, Obese Eyes: Yes: Conjunctiva Clear, EOM Intact. No: Sclera Icterus HENT: Yes: Atraumatic, Normocephalic Gastrointestinal: Yes: Soft, Abdomen, Obese, Other (R sided drain to bulb suction with minimal serosang/bilious-tinged (interactive marketing strategist pink/mango) fluid). No: Tenderness Extremities: No: Cool, Cyanosis Integumentary: Yes: Incision (x3 w/steris + drain site), Tattoos. No: Jaundice , Rash Wound/Incision: Yes: Clean/Dry, Well Approximated, Steri Strips (x3). No: Dressing Dry and Intact (drain dressing with serous fluid - changed for new dressing), Reddened Neurological: Yes: Alert, Oriented Labs: CBC, BMP 03/13/18 07:00 03/13/18 07:00 Problem List - Problems (1) Calculus of gallbladder with acute cholecystitis without obstruction Assessment/Plan: symptomatic cholelithiasis with cystic duct obstruction by HIDA POD3 s/p laparoscopic partial cholecystectomy for acute on chronic cholecystitis with numerous small yellow stones Macho drain left, decreasing bilious drainage change to PO abx in am GI/DVT prophylaxis minimal/no pain controlled with nonnarcotic meds prn encouraged to ambulate/OOB/use IS pt will need drain teaching before d/c monitor drainage trend labs GI aware of pt possible d/c tomorrow with drain in place, VNS Code(s): K80.00 - CALCULUS OF GALLBLADDER W ACUTE CHOLECYST W/O OBSTRUCTION (2) Postoperative bile leak Assessment/Plan: see above GI following monitor drain output - decreasing trend labs will leave drain until surgical f/u next Wed Code(s): K91.89 - OTH POSTPROCEDURAL COMPLICATIONS AND DISORDERS OF DGSTV SYS; K83.8 - OTHER SPECIFIED DISEASES OF BILIARY TRACT (3) GERD (gastroesophageal reflux disease) Assessment/Plan: PPI daily Code(s): K21.9 - GASTRO-ESOPHAGEAL REFLUX DISEASE WITHOUT ESOPHAGITIS Qualifiers: Esophagitis presence: without esophagitis Qualified Code(s): K21.9 - Gastro -esophageal reflux disease without esophagitis (4) Obesity due to excess calories without serious comorbidity Code(s): E66.09 - OTHER OBESITY DUE TO EXCESS CALORIES Qualifiers: Obesity classification: adult class 2 (BMI 35 - 39.9) Body mass index: BMI 36.0-36.9 Qualified Code(s): E66.09 - Other obesity due to excess calories; Z68.36 - Body mass index (BMI) 36.0-36.9, adult (5) Generalized anxiety disorder with panic attacks Assessment/Plan: ok to continue home meds Code(s): F41.1 - GENERALIZED ANXIETY DISORDER; F41.0 - PANIC DISORDER [EPISODIC PAROXYSMAL ANXIETY]
[2018-03-13] MEDS: PARoxetine HCL 20 MG TABLET (FP) PO SCH (21:07)
[2018-03-14] MEDS ORDERED: PT OWN MED DRAWER 7, Y5N ONE (01:30)
[2018-03-14] MEDS: IBUPROFEN 600 MG TABLET (FP) PO SCH ×4 (01:37→18:12)
[2018-03-14] MEDS: CEFOXITIN SODIUM 2 GM in DEXTROSE 5%-WATER - 100 ML IVPB SCH (01:38)
[2018-03-14] MEDS: ACETAMINOPHEN 325 MG TABLET (FP) PO SCH ×4 (04:15→22:40)
[2018-03-14] MEDS: metroNIDAZOLE 250 MG TABLET PO SCH ×3 (06:58→22:39)
[2018-03-14] MEDS ORDERED: INSULIN (LEVEMIR) 100 UNITS/ML UNITS SQ ONE (07:08)
[2018-03-14] MEDS ORDERED: MAGNESIUM HYDROX 2400MG/30ML ORAL SUSPENSION 30 ML CUP PO ONE (08:58)
--- NOTE | 2018-03-14 09:03 | PN ---
Progress Note, Physician Chief Complaint: AWAKE ALERT DID NOT SLEEP WELL C/O CONSTIPATION PATIENT DENIES FEVERS OVERNIGHT TOLERATING PO - Current Medication List Current Medications: Active Medications Acetaminophen (Tylenol -) 650 mg PO Q6H [facility] Last Admin: 03/14/18 04:15 Dose: Not Given Ibuprofen (Motrin -) 600 mg PO Q6HPO [facility] Last Admin: 03/14/18 06:59 Dose: Not Given Levofloxacin (Levaquin -) 750 mg PO DAILY@0600 [facility] Last Admin: 03/14/18 06:57 Dose: 750 mg Metronidazole (Flagyl -) 500 mg PO TID [facility] Last Admin: 03/14/18 06:58 Dose: 500 mg Ondansetron HCl (Zofran Injection) 4 mg IVPUSH Q6H PRN PRN Reason: NAUSEA AND/OR VOMITING Pantoprazole Sodium (Protonix -) 40 mg PO DAILY [facility] Last Admin: 03/13/18 11:02 Dose: 40 mg Paroxetine HCl (Paxil -) 20 mg PO HS [facility] Last Admin: 03/13/18 21:07 Dose: 20 mg - Objective Vital Signs: Vital Signs Temperature 98.1 F 03/14/18 06:00 Pulse Rate 74 03/14/18 06:00 Respiratory Rate 20 03/14/18 06:00 Blood Pressure 144/82 03/14/18 06:00 O2 Sat by Pulse Oximetry (%) 98 03/13/18 21:00 Constitutional: Yes: Mild Distress Eyes: Yes: WNL HENT: Yes: WNL Neck: Yes: WNL Cardiovascular: Yes: WNL Respiratory: Yes: WNL Gastrointestinal: Yes: Other (ANEL DRAIN STILL WITH DARK FLUID , <20CC) Genitourinary: Yes: WNL Musculoskeletal: Yes: WNL Extremities: Yes: WNL Edema: No Peripheral Pulses WNL: Yes Integumentary: Yes: WNL Wound/Incision: Yes: Draining Neurological: Yes: WNL ...Motor Strength: WNL Psychiatric: Yes: WNL Labs: CBC, BMP 03/13/18 07:00 03/13/18 07:00 INR, PTT INR 1.11 (0.83-1.09) H 03/09/18 20:45 Problem List - Problems (1) Calculus of gallbladder with acute cholecystitis without obstruction Code(s): K80.00 - CALCULUS OF GALLBLADDER W ACUTE CHOLECYST W/O OBSTRUCTION (2) Cholelithiasis Code(s): K80.20 - CALCULUS OF GALLBLADDER W/O CHOLECYSTITIS W/O OBSTRUCTION Qualifiers: Cholelithiasis location: other site Biliary obstruction: without biliary obstruction Qualified Code(s): K80.80 - Other cholelithiasis without obstruction Assessment/Plan PATIENT FEELS DRAIN IS OBSTRUCTED WILL HAVE NURSE OPEN PUMP AND CHECK IF FLUID FLOWS THROUGH SURGERY FOLLOW UP APPRECIATED OOB TO CHAIR SENNA/MOM FOR CONSTIPATION
[2018-03-14] MEDS: PANTOPRAZOLE 40 MG TABLET (FP) PO SCH (09:17)
[2018-03-14] MEDS: SENNOSIDES 8.6MG TABLET (FP) PO SCH ×2 (10:53→22:39)
--- NOTE | 2018-03-14 10:53 | PN ---
Progress Note, Physician History of Present Illness: Pt overall states she feels better. Denies abd pain/nausea/vomiting. Reports one hard BM. Denies shortness of breath, cough, dysuria. Tmax of 99.9 last night with some chills. Currently afebrile. - Current Medication List Current Medications: Active Medications Acetaminophen (Tylenol -) 650 mg PO Q6H [facility] Last Admin: 03/14/18 09:12 Dose: Not Given Ibuprofen (Motrin -) 600 mg PO Q6HPO [facility] Last Admin: 03/14/18 06:59 Dose: Not Given Levofloxacin (Levaquin -) 750 mg PO DAILY@0600 [facility] Last Admin: 03/14/18 06:57 Dose: 750 mg Metronidazole (Flagyl -) 500 mg PO TID [facility] Last Admin: 03/14/18 06:58 Dose: 500 mg Ondansetron HCl (Zofran Injection) 4 mg IVPUSH Q6H PRN PRN Reason: NAUSEA AND/OR VOMITING Pantoprazole Sodium (Protonix -) 40 mg PO DAILY [facility] Last Admin: 03/14/18 09:17 Dose: 40 mg Paroxetine HCl (Paxil -) 20 mg PO HS [facility] Last Admin: 03/13/18 21:07 Dose: 20 mg Senna (Senna -) 1 tab PO BID [facility] - Objective Vital Signs: Vital Signs Temperature 98.1 F 03/14/18 06:00 Pulse Rate 74 03/14/18 06:00 Respiratory Rate 20 03/14/18 06:00 Blood Pressure 144/82 03/14/18 06:00 O2 Sat by Pulse Oximetry (%) 98 03/13/18 21:00 Constitutional: Yes: No Distress, Calm Cardiovascular: Yes: Regular Rate and Rhythm Respiratory: Yes: CTA Bilaterally Gastrointestinal: Yes: Normal Bowel Sounds, Soft, Other (RUQ drain with small amount of output) Genitourinary: Yes: WNL Extremities: Yes: WNL Wound/Incision: Yes: Steri Strips, Dressing Dry and Intact Neurological: Yes: Alert, Oriented Labs: CBC, BMP 03/13/18 07:00 03/13/18 07:00 INR, PTT INR 1.11 (0.83-1.09) H 03/09/18 20:45 CMP Sodium 140 mmol/L (136-145) 03/13/18 07:00 Potassium 3.9 mmol/L (3.5-5.1) 03/13/18 07:00 Chloride 103 mmol/L (98-107) 03/13/18 07:00 Carbon Dioxide 27 mmol/L (21-32) 03/13/18 07:00 Anion Gap 10 MMOL/L (8-16) 03/13/18 07:00 BUN 8 mg/dL (7-18) 03/13/18 07:00 Creatinine 0.6 mg/dL (0.55-1.02) 03/13/18 07:00 Creat Clearance w eGFR > 60 (>60) 03/13/18 07:00 Random Glucose 84 mg/dL (74-106) 03/13/18 07:00 Hemoglobin A1c % 6.0 % (4.8-6.0) 03/09/18 12:02 Calcium 8.2 mg/dL (8.5-10.1) L 03/13/18 07:00 Total Bilirubin 0.3 mg/dL (0.2-1.0) 03/13/18 07:00 AST 40 U/L (15-37) H 03/13/18 07:00 ALT 47 U/L (12-78) 03/13/18 07:00 Alkaline Phosphatase 80 U/L (45-117) D 03/13/18 07:00 Total Protein 7.0 g/dl (6.4-8.2) 03/13/18 07:00 Albumin 2.9 g/dl (3.4-5.0) L 03/13/18 07:00 Lipase 56 U/L (73-393) L 03/11/18 07:12 Serum , Qual Negative 03/10/18 06:00 Problem List - Problems (1) Calculus of gallbladder with acute cholecystitis without obstruction Code(s): K80.00 - CALCULUS OF GALLBLADDER W ACUTE CHOLECYST W/O OBSTRUCTION (2) Cholelithiasis Code(s): K80.20 - CALCULUS OF GALLBLADDER W/O CHOLECYSTITIS W/O OBSTRUCTION Qualifiers: Cholelithiasis location: other site Biliary obstruction: without biliary obstruction Qualified Code(s): K80.80 - Other cholelithiasis without obstruction (3) Generalized anxiety disorder with panic attacks Code(s): F41.1 - GENERALIZED ANXIETY DISORDER; F41.0 - PANIC DISORDER [EPISODIC PAROXYSMAL ANXIETY] (4) Obesity due to excess calories without serious comorbidity Code(s): E66.09 - OTHER OBESITY DUE TO EXCESS CALORIES Qualifiers: Obesity classification: adult class 2 (BMI 35 - 39.9) Body mass index: BMI 36.0-36.9 Qualified Code(s): E66.09 - Other obesity due to excess calories; Z68.36 - Body mass index (BMI) 36.0-36.9, adult (5) RUQ abdominal pain Code(s): R10.11 - RIGHT UPPER QUADRANT PAIN (6) GERD (gastroesophageal reflux disease) Code(s): K21.9 - GASTRO-ESOPHAGEAL REFLUX DISEASE WITHOUT ESOPHAGITIS Qualifiers: Esophagitis presence: without esophagitis Qualified Code(s): K21.9 - Gastro -esophageal reflux disease without esophagitis Assessment/Plan 57 y.o. female with obesity, anxiety/panic disorder, GERD and intermittent abd pain in the past presents with c/o persistent RUQ intense pain and vomiting episodes Acute Cholecystitis s/p lap partial cholecytectomy/drain POD#3 - multiple stones --now on PO antibiotics, may continue for a few more days -- monitoring of amt of biliary drainage - appears to be decreasing -- pt with mild temperature elevation last night, afebrile this a.m. continue monitoring temps -- surgery/GI f/u
--- NOTE | 2018-03-14 11:34 | PN ---
Progress Note, Physician History of Present Illness: Pt with acute on chronic cholecystitis, s/p laparoscopic partial cholecystectomy. Macho drain with 45 ml out yesterday, bilious/serosang; 30 so far today, plastic finisher in color, minimal in bulb now. Pt ambulating, voiding, tolerating diet. No nausea or fever. Pain minimal/incisional, has not taken all pain meds offered. Had small, hard BM, concerned about not going more. Antibiotics changed to PO per ID. - Current Medication List Current Medications: Active Medications Acetaminophen (Tylenol -) 650 mg PO Q6H [facility] Last Admin: 03/14/18 09:12 Dose: Not Given Ibuprofen (Motrin -) 600 mg PO Q6HPO [facility] Last Admin: 03/14/18 06:59 Dose: Not Given Levofloxacin (Levaquin -) 750 mg PO DAILY@0600 [facility] Last Admin: 03/14/18 06:57 Dose: 750 mg Metronidazole (Flagyl -) 500 mg PO TID [facility] Last Admin: 03/14/18 06:58 Dose: 500 mg Ondansetron HCl (Zofran Injection) 4 mg IVPUSH Q6H PRN PRN Reason: NAUSEA AND/OR VOMITING Pantoprazole Sodium (Protonix -) 40 mg PO DAILY [facility] Last Admin: 03/14/18 09:17 Dose: 40 mg Paroxetine HCl (Paxil -) 20 mg PO HS [facility] Last Admin: 03/13/18 21:07 Dose: 20 mg Senna (Senna -) 1 tab PO BID [facility] Last Admin: 03/14/18 10:53 Dose: 1 tab - Objective Vital Signs: Vital Signs Temperature 98.1 F 03/14/18 06:00 Pulse Rate 74 03/14/18 06:00 Respiratory Rate 20 03/14/18 06:00 Blood Pressure 144/82 03/14/18 06:00 O2 Sat by Pulse Oximetry (%) 98 03/13/18 21:00 Constitutional: Yes: No Distress, Calm, Obese Eyes: Yes: Conjunctiva Clear, EOM Intact. No: Sclera Icterus HENT: Yes: Atraumatic, Normocephalic Gastrointestinal: Yes: Soft, Abdomen, Obese, Tenderness (incisional only), Other (drain to bulb with minimal light pink/orange in bulb) Extremities: No: Cool, Cyanosis Integumentary: Yes: Incision (x3 w/steris and drain site). No: Jaundice, Rash Wound/Incision: Yes: Clean/Dry, Well Approximated, Steri Strips (x3), Dressing Dry and Intact (at drain site) Neurological: Yes: Alert, Oriented Labs: no new labs Problem List - Problems (1) Calculus of gallbladder with acute cholecystitis without obstruction Assessment/Plan: symptomatic cholelithiasis with cystic duct obstruction by HIDA POD4 s/p laparoscopic partial cholecystectomy for acute on chronic cholecystitis with numerous small yellow stones Macho drain left, decreasing bilious drainage now on po abx GI/DVT prophylaxis minimal/no pain controlled with nonnarcotic meds prn encouraged to ambulate/OOB/use IS pt will need drain teaching before d/c monitor drainage GI following possible d/c today with drain in place, VNS, to follow up next week Code(s): K80.00 - CALCULUS OF GALLBLADDER W ACUTE CHOLECYST W/O OBSTRUCTION (2) Postoperative bile leak Assessment/Plan: see above GI following monitor drain output - decreasing will leave drain until surgical f/u next Wed Code(s): K91.89 - OTH POSTPROCEDURAL COMPLICATIONS AND DISORDERS OF DGSTV SYS; K83.8 - OTHER SPECIFIED DISEASES OF BILIARY TRACT (3) GERD (gastroesophageal reflux disease) Assessment/Plan: PPI daily Code(s): K21.9 - GASTRO-ESOPHAGEAL REFLUX DISEASE WITHOUT ESOPHAGITIS Qualifiers: Esophagitis presence: without esophagitis Qualified Code(s): K21.9 - Gastro -esophageal reflux disease without esophagitis (4) Obesity due to excess calories without serious comorbidity Code(s): E66.09 - OTHER OBESITY DUE TO EXCESS CALORIES Qualifiers: Obesity classification: adult class 2 (BMI 35 - 39.9) Body mass index: BMI 36.0-36.9 Qualified Code(s): E66.09 - Other obesity due to excess calories; Z68.36 - Body mass index (BMI) 36.0-36.9, adult (5) Generalized anxiety disorder with panic attacks Assessment/Plan: ok to continue home meds Code(s): F41.1 - GENERALIZED ANXIETY DISORDER; F41.0 - PANIC DISORDER [EPISODIC PAROXYSMAL ANXIETY]
--- NOTE | 2018-03-14 12:21 | PATH ---
Surgical Pathology Report Patient Name: DONALD ANTHONY Med. Rec. #: [id number] /Age/Gender: 1960 (Age: 57) / F Account: [id number] Location: [facility] MED/SURG Taken: 03/10/2018 Received: 03/13/2018 Reported: 03/14/2018 Physicians: Carmen Corona M.D. Specimen(s) Received GALLBLADDER Clinical History Cholelithiasis with acute cholecystitis Final Diagnosis GALLBLADDER, LAPAROSCOPIC PARTIAL CHOLECYSTECTOMY: ACUTE CHOLECYSTITIS AND CHOLELITHIASIS. Electronically Signed Roseann Ho M.D. Gross Description Received in formalin, labeled "gallbladder," is a 7.0 x 3.5 x 2.2 cm. partial gallbladder with no cystic duct present. The outer surface is jara-orantes with a focal defect at the proximal aspect of the specimen and varies from smooth to shaggy. The lumen contains yellow, sludgelike bile with abundant in yellow, irregular to fragmented choleliths ranging from 0.1-0.6 cm in greatest dimension. The mucosa is brown and eroded. The wall of the gallbladder ranges from 0.1-0.5 cm. in thickness. [employer] sections are submitted in one cassette. /03/13/2018 [facility]03/13/2018
--- NOTE | 2018-03-14 17:40 | PN ---
Progress Note (short form) - Note Progress Note: NAD, AAox3, pain-free, 10-15 cc/12 hrs sersanguenous fluid in ANEL. Discussed with sx and patient. Follow up as OP for ANEL removal in 1 week, or as per sx. GI as weeded. Problem List - Problems (1) RUQ abdominal pain Code(s): R10.11 - RIGHT UPPER QUADRANT PAIN (2) Positive Bush's Sign Code(s): R19.8 - OTH SYMPTOMS AND SIGNS INVOLVING THE DGSTV SYS AND ABDOMEN (3) Cholelithiasis Code(s): K80.20 - CALCULUS OF GALLBLADDER W/O CHOLECYSTITIS W/O OBSTRUCTION Qualifiers: Cholelithiasis location: other site Biliary obstruction: without biliary obstruction Qualified Code(s): K80.80 - Other cholelithiasis without obstruction
[2018-03-14] MEDS: PARoxetine HCL 20 MG TABLET (FP) PO SCH (22:39)
[2018-03-15] MEDS: IBUPROFEN 600 MG TABLET (FP) PO SCH ×2 (00:14→05:27)
[2018-03-15] MEDS ORDERED: PT OWN MED DRAWER 7, Y5N ONE ×2 (03:41→03:49)
[2018-03-15] MEDS: ACETAMINOPHEN 325 MG TABLET (FP) PO SCH ×2 (03:51→10:16)
[2018-03-15] MEDS: metroNIDAZOLE 250 MG TABLET PO SCH (05:26)
[2018-03-15] MEDS ORDERED: INSULIN (NOVOLOG) ASPART 100 UNITS/ML 10ML VIAL ONE (06:54)
--- NOTE | 2018-03-15 10:02 | DS ---
Physical Examination Vital Signs: Vital Signs Temperature 97.8 F 03/15/18 06:00 Pulse Rate 66 03/15/18 06:00 Respiratory Rate 18 03/15/18 06:00 Blood Pressure 122/75 03/15/18 06:00 O2 Sat by Pulse Oximetry (%) 97 03/14/18 21:00 Constitutional: Yes: No Distress Eyes: Yes: WNL HENT: Yes: WNL Neck: Yes: WNL Cardiovascular: Yes: WNL Respiratory: Yes: WNL Gastrointestinal: Yes: Other (ANEL DRAIN MINIMAL DISCHARGE) Musculoskeletal: Yes: WNL Extremities: Yes: WNL Edema: No Peripheral Pulses WNL: Yes Integumentary: Yes: WNL Wound/Incision: Yes: Draining Neurological: Yes: WNL ...Motor Strength: WNL Psychiatric: Yes: WNL Labs: CBC, BMP 03/13/18 07:00 03/13/18 07:00 Discharge Summary Reason For Visit: CHOLELITHIASIS Current Active Problems Calculus of gallbladder with acute cholecystitis without obstruction (Acute) Calculus of gallbladder without cholecystitis without obstruction (Acute) Cholelithiasis (Acute) Generalized anxiety disorder with panic attacks (Acute) Obesity due to excess calories without serious comorbidity (Acute) Positive Bush's Sign (Acute) Postoperative bile leak (Acute) RUQ abdominal pain (Acute) Procedures: Principal: LAPCHOL Hospital Course: ADMITTED WITH CHOLITHISIS S/P LAPCHOL WITH COMPLICATIONS NEEDING ANEL DRAIN WILL NEED DRAIN WITH SURGICAL FOLLOW UP OUTPATIENT Condition: Improved - Instructions Diet, Activity, Other Instructions: Postoperative instructions: You had a laparoscopic partial cholecystectomy on 03/10/[address] Willie Fall of [facility]. Activity: Resume your usual activities gradually, but no heavy exertion or lifting more than 10-15 pounds for 1 month. Sticky tapes on skin will fall off by themselves. You may not shower until your drain is out; you may need to keep a gauze dressing on the site to keep it clean and dry. No bath or swimming until skin incisions have healed. Eat lightly at first, but advance to your usual diet as tolerated. DRAIN CARE: You will need to empty your drain and RECORD how much comes out on a piece of paper at least once a day, or anytime it becomes half-full. Bring the paper with you to see Dr. Juan David at your appointment. Visiting nurse may come to make sure the drain is ok as well. Pain: For pain, you may use and alternate Tylenol (acetaminophen) 1-2 pills and/ or ibuprofen 200 mg (1-3 pills) every 6 hours each as needed; this means that you can take one OR the other at 3-hour intervals. Do not take more than 4000mg of acetaminophen in a day. Take medications as prescribed or indicated on the labeling. Complete your ANTIBIOTICS as prescribed: Levofloxacin 750mg daily and Metronidazole 500mg 3 times a day, both for one week. Follow-up: Call Dr. Fall's office at [phone] to make your postop appointment (Monday next week as directed). Clinic is held in the Diagnostic Center on the first floor of [facility]. Call the office if you have: * increasing pain not responsive to pain medication * fever of 101F or higher * vomiting * unusual or increasing bleeding or drainage from wounds * increasing redness or swelling at wound sites Also, see your primary medical doctor within 1-[address] LEE IN 2-3 DAYS Referrals: Willie Fall MD [Staff Physician] - 1 Week (CALL to make your appointment) Disposition: VNS/HOME HEALTH CARE - Home Medications Comprehensive Discharge Medication List: Ambulatory Orders Paroxetine HCl 20 mg PO HS 12/01/15 Zolpidem Tartrate [Ambien] 5 mg PO HS PRN 04/27/16 Pantoprazole Sodium [Protonix] 40 mg PO DAILY #30 tablet. 09/01/17
[2018-03-15] MEDS: PANTOPRAZOLE 40 MG TABLET (FP) PO SCH (10:16)
[2018-03-15] MEDS: SENNOSIDES 8.6MG TABLET (FP) PO SCH (10:16)
[2018-03-15 12:13] VITALS: BP 110/70; PULSE 72; TEMP 98.1
--- NOTE | 2018-04-02 16:47 | OP ---
DATE OF OPERATION: 03/10/2018 PREOPERATIVE DIAGNOSIS: Acute cholecystitis. POSTOPERATIVE DIAGNOSIS: Acute on chronic cholecystitis. PROCEDURE: Laparoscopic partial cholecystectomy. SURGEON: Willie Fall MD MANUFACTURING LABORER: Riki Sheffield MD ANESTHESIA: General endotracheal and local, 20 mL of 0.25% Marcaine. ESTIMATED BLOOD LOSS: 30 mL. FLUIDS: 1800 mL crystalloid. SPECIMEN: Partial gallbladder to pathology with multiple stones. DRAINS: A 19-Tanz[place] Macho drain in the right upper quadrant/gallbladder fossa to bulb suction. FINDINGS: Tense gallbladder full of numerous, small, yellow stones decompressed of approximately 30 mL of bile. Significant inflammation and edema obscuring the base of the gallbladder and cystic structures. Multiple holes in the gallbladder with stone spillages. All visible stones ultimately retrieved. The gallbladder was transected above the base/infundibulum and the majority removed along with the stone s. The residual infundibulum was irrigated and stones retrieved. Mucosa cauterized with no bile return from the cystic duct. A 19-T[place] Macho drain was left in the fossa and right upper quadrant to bulb suction. DISPOSITION: Stable and extubated to PACU. INDICATIONS FOR PROCEDURE: The patient is a 57-year-old obese Derrick female with a history of anxiety and panic disorder, reflux disease, status post abdominoplasty and left lower leg fracture repair in the past who presented to the emergency room with acute right upper quadrant and epigastric pain beginning the day before after a meal with Nigerian food the night food associated with episodes of nausea and vomiting but no change in bowel habits. She had this pain on and off for approximately 2 years, but this time it persisted. In the emergency room, she was afebrile with normal labs. An ultrasound showed a contracted gallbladder with multiple stones. No wall thickening, no pericholecystic fluid, no ductal dilatation. A HIDA scan was then done showing nonvisualization of the gallbladder at 2 hours consistent with cystic duct obstruction. Given her symptomatic cholelithiasis with acute cholecystitis by HIDA scan, antibiotics were started along with IV fluids and pain medications as needed. Risks, benefits, and alternatives of laparoscopic, possible open, cholecystectomy including, but not limited to, bleeding, infection, injury to adjacent structures, bile leak or ductal injury, intra-abdominal abscess, incisional hernia, need for further procedures were discussed with the patient including alternatives of low-fat diet with delayed or no surgery. Risks of this included recurrence of biliary colic, progressive cholecystitis, cholangitis, or pancreatitis. The patient did desire to proceed with an operation and signed informed consent for the same. This was accomplished with a capacitor inspector by phone, and labs this morning were stable showing no significant increase in LFTs, lipase, or white count. Thus, she is brought to the OR for this procedure. OPERATIVE TECHNIQUE: The patient was brought to the operating room and laid supine on the operating room table. Sequential compression devices were applied to bilateral lower extremities, and scheduled antibiotics were dosed as appropriate preoperatively. After induction and intubation by Anesthesia, the patient's abdomen was prepped and draped in sterile fashion, and a small, midline supraumbilical incision was made in the skin of the scalpel and carried into subcutaneous tissues with electrocautery until the abdominal wall fascia was identified, scored, and elevated with Maury clamps. The peritoneum was entered bluntly with the tip of a clamp and a fingertip inserted to ensure entry into the abdominal cavity and the absence of any underlying adhesions. A stay suture of 0 Vicryl was then placed in the fascia for later closure and the Ceja trocar introduced directly into the abdominal cavity and secured in place with the balloon. The abdomen was insufflated with carbon dioxide, and the patient was placed in reverse Trendelenburg position and the laparoscope inserted to inspect the abdominal cavity. An additional 5-mm port was placed in the subxiphoid area under direct vision through which a grasper was introduced and used to palpate the gallbladder, which was noted to be tense, inflamed, and edematous. Multiple stones were palpable within the gallbladder. Two additional 5-mm ports were placed in the right upper quadrant through one of these a decompression needle was introduced and used in an attempt to decompress the gallbladder. Only 30 mL of bile was obtained at which point we recognized that most of the gallbladder was, in fact, very full of stones. A grasper was used through the lateral most port to grasp the fundus of the gallbladder in attempt to elevate it over the liver bed. Very quickly, however, this grasping resulted in a hole in the fundus of the gallbladder through which numerous yellow stones were visible, and a couple spilled out. The gallbladder was regrasped in an attempt to close this hole temporarily. The other port site was used for a grasper in attempt to grasp at what was the infundibulum of the gallbladder, which did not prove possible due to the numerous amount of stones in it. This grasper was then used in an alternating fashion to help manipulate and retract either the gallbladder or the liver edge simply by positioning while a [place] dissector was used to begin gently the peritoneum over the base and the midportion of the gallbladder. Again, there were significant inflammatory changes noted over the gallbladder itself, and it quickly became clear that the base of the gallbladder and cystic structures were far too inflamed to be able to safely dissect out the cystic structures. Thus, the hook cautery was also used to begin the gallbladder from the edge of the liver along the medial midportion and the lateral midportion working towards the dome. [place] dissector was also used to carefully and gently separate the abdomen from the liver capsule around behind in the midportion of the gallbladder where it effectively peeled away very easily from this area. Ultimately, we were able to mobilize the gallbladder away from the liver bed just enough from the midportion up toward the dome to be able to clearly make a window behind the gallbladder. Multiple holes were made additionally in the gallbladder at this point. There was some opening in the gallbladder at its midportion, and a grasper was being used to help control spillage of stones from this area. In the end, we were able to transect the gallbladder itself just above the infundibulum and separate it entirely from the liver bed distally up toward the fundus, thus performing a partial cholecystectomy. This distal half of the gallbladder was placed in an EndoCatch bag, and a couple of larger stones were also placed with it. This was then retrieved out the umbilical port site and passed off the table for a specimen. The suction certified travel counselor was used throughout the case to help with visualization in the operative field, and at this point a number of stones had spilled from the gallbladder. Some of the smaller ones were able to be suctioned in the suction certified travel counselor apparatus. A number of the larger ones needed to be retrieved, thus, the port site at the subxiphoid area was exchanged for an 11-mm port, and the stone grasper was used to retrieve numerous spilled yellow stones. The suction certified travel counselor was then also used to irrigate out the proximal residual portion of the gallbladder in the infundibulum where the internal opening of the cystic duct was not clearly visualizable. We were able to float up several stones from this area in order to retrieve all of them separately from outside the gallbladder. All visible stones were retrieved. Additional irrigation revealed no additional stones hiding within the residual portion of the infundibulum, and all mucosa that was accessible and visible was cauterized with the electrocautery on the hook cautery tip, but there was no practical way to tie off or secure the residual cystic duct as the structure itself could not be isolated. We then elected to leave a drain, and a 19-Tanz[place] Macho drain was threaded in through the subxiphoid port and brought out the lateral right upper quadrant port. The internal portion of the drain was positioned in the right upper quadrant of the gallbladder fossa. Hemostasis was noted to be complete. Some of the pneumoperitoneum was let out under direct visualization with the drain held in place such that it could be secured with a 2-0 nylon stitch at the skin. The rest of the ports were then removed under direct vision as well as the camera, the Ceja trocar, and the remainder of the abdomen exsufflated of carbon dioxide. The patient was returned to neutral position. Hemostasis was achieved in the other port sites where needed with electrocautery, and local anesthetic was infiltrated into all of the port sites. The stay suture of Vicryl was then tied to close the fascia at the umbilical site. We elected not to attempt closing fascia at the subxiphoid area. The skin was then closed with 4-0 Vicryl subcuticular sutures including a running at the umbilical and subxiphoid sites. Benzoin and Steri-Strips were applied over the 3 incisions, which were covered with dressings of gauze and Tegaderm. Gauze and Tegaderm dressing was also placed around the drain at the right lateral site, which was connected to bulb suction. Counts were correct at the end of the procedure. The patient was then awakened and extubated by anesthesia, was moved back to a stretcher, and taken to the recovery room in stable condition having tolerated the procedure well. Dr. Sheffield was an essential or assistant throughout the case including facilitating entry into the abdominal cavity, manipulation and retraction of the gallbladder and the liver throughout the case, assistance with decompression of the gallbladder as well as retrieval of the partial gallbladder and stones, and closure of the skin afterwards. Willie Fall M.D. [id number]
== END 2018-03-15 14:13 | disposition home health service (06) | DRG 263 ==
LOC: JER 07:46 → JERBED 11:54 → J8W 15:58 → OBSVTOIN 22:21
PROVIDERS: ADMIT Family Medicine; ATTEND Family Medicine
PROC: 0FT44ZZ Resection of Gallbladder, Percutaneous Endoscopic Approach (ICD-10-PCS; principal; 2018-03-10 09:00)
DX: K80.12 Calculus of gallbladder with acute and chronic cholecystitis without obstruction (principal); K76.0 Fatty (change of) liver, not elsewhere classified; K21.9 Gastro-esophageal reflux disease without esophagitis; E66.9 Obesity, unspecified; Z68.36 Body mass index [BMI] 36.0-36.9, adult; F41.1 Generalized anxiety disorder; F41.0 Panic disorder [episodic paroxysmal anxiety]; Z98.84 Bariatric surgery status
CPT/HCPCS: 36415; 71046-TC-FY; 76705-TC; 78226-TC; 80053; 81003; 81015; 83036; 83690; 84703; 85025; 85610; 86803; 86850; 86900; 86901; 87340; 87389; 88304-TC; 93005; 93010; 94010; 94760; 97116-GP; 97161-GP; 99283-25; A9537; G0378; J0131

== ENCOUNTER 2018-03-22 11:58 | Day surgery (SDC) | payer OTHER ==
[2018-03-22 13:23] VITALS: BMI 36.1
[2018-03-22] MEDS ORDERED: MIDAZOLAM HCL 2 MG/2 ML SINGLE DOSE VIAL ONE (14:00)
[2018-03-22] MEDS ORDERED: IOHEXOL 300 MG/ML INFUS..BTL IV ONE (14:25)
[2018-03-22 20:08] VITALS: BP 148/79; PULSE 84; TEMP 98
== END 2018-03-22 20:00 | disposition home or self-care (01) ==
LOC: JASU-ENDO 11:58
PROVIDERS: ATTEND Internal Medicine Gastroenterology
PROC: 0F798DZ Dilation of Common Bile Duct with Intraluminal Device, Via Natural or Artificial Opening Endoscopic (ICD-10-PCS; principal; 2018-03-22 13:00)
DX: T81.89XA Other complications of procedures, not elsewhere classified, initial encounter (principal); Z90.49 Acquired absence of other specified parts of digestive tract
CPT/HCPCS: 36415; 76000-TC-FY; 82150

== ENCOUNTER 2018-03-28 22:49 | Emergency (ER) | payer OTHER ==
[2018-03-28 23:05] VITALS: BP 140/78; PULSE 90; TEMP 98.7; BMI 35.9
--- NOTE | 2018-03-29 01:35 | PDOC ---
History of Present Illness <Lili Mcfarland - Last Filed: 03/29/18 02:47> - History of Present Illness Initial Comments: 03/29/18 02:47 The patient is a 57 year old [place] speaking female, with a significant past medical history of panic attacks, anxiety, and GERD who presents to the emergency department with 7 days of subjective fever and chills. As per patient , she had a partial cholecystectomy done on 03/[address] Fall. She reports following up and removing her drain 03/28 earlier today. The patient recently had an endoscopy done with Dr. De Jesus on 03/22. She notes that her subjective fever and chills were worse today. As per Dr. Sheffield, she was seen in his office today for drain removal and did not note and postoperative fevers. Patient is a poor historian. She denies recent headache or dizziness. She denies recent nausea, vomit, diarrhea or constipation. She denies recent dysuria, frequency, urgency or hematuria. She denies recent chest pain or shortness of breath. Allergies: Meperidine Past surgical history: Laparoscopic partial cholecystectomy. Endoscopy. Social history: Nonsmoker. Denies EtOH use and recreational drug use. Primary Care Physician: Dr. Michi Christine Surgeon: Dr. Fall GI: Dr. Oleksandr De Jesus <Irma Ricardo - Last Filed: 03/29/18 05:08> - General Chief Complaint: Cold Symptoms Stated Complaint: FEVER, CHILLS Time Seen by Provider: 03/29/18 01:31 Past History <Lili Mcfarland - Last Filed: 03/29/18 02:47> - Past Medical History COPD: No GI Disorders: Yes (gastritis ) Psychiatric Problems: Yes (ANXIETY) - Surgical History Cholecystectomy: Yes (2018) - Suicide/Smoking/Psychosocial Hx Smoking Status: No Smoking History: Never smoked Have you smoked in the past 12 months: No Number of Cigarettes Smoked Daily: 0 Hx Alcohol Use: No Drug/Substance Use Hx: No Substance Use Type: None <Irma Ricardo - Last Filed: 03/29/18 05:08> - Past Medical History Allergies/Adverse Reactions: Allergies Allergy/AdvReac Type Severity Reaction Status Date / Time meperidine HCl [From Demerol] Allergy Verified 03/28/18 23:05 Home Medications: Ambulatory Orders Paroxetine HCl 20 mg PO HS 12/01/15 Acetaminophen [Tylenol .Regular Strength -] 650 mg PO Q6H 30 Days #60 tablet 12/25 Ibuprofen [Motrin -] 600 mg PO Q6HPO 30 Days #60 tablet 03/15/18 Pantoprazole Sodium [Protonix -] 40 mg PO DAILY 30 Days #30 tablet.ec 03/15/18 Sennosides [Senna -] 1 tab PO BID 30 Days #60 tablet 03/15/18 Review of Systems - Review of Systems Comments:: 03/29/18 02:48 GENERAL/CONSTITUTIONAL: Fever. Chills. No weakness. HEAD, EYES, EARS, NOSE AND THROAT: No change in vision. No ear pain or discharge. No sore throat. GASTROINTESTINAL: No nausea, vomiting, diarrhea or constipation. GENITOURINARY: No dysuria, frequency, or change in urination. CARDIOVASCULAR: No chest pain or shortness of breath. RESPIRATORY: No cough, wheezing, or hemoptysis. MUSCULOSKELETAL: No joint or muscle swelling or pain. No neck or back pain. SKIN: No rash NEUROLOGIC: No headache, vertigo, loss of consciousness, or change in strength/ sensation. ENDOCRINE: No increased thirst. No abnormal weight change. HEMATOLOGIC/LYMPHATIC: No anemia, easy bleeding, or history of blood clots. ALLERGIC/IMMUNOLOGIC: No hives or skin allergy. <Irma Riacrdo - Last Filed: 03/29/18 05:08> *Physical Exam - Vital Signs Last Vital Signs Temp Pulse Resp BP Pulse Ox 98.7 F 90 18 140/78 99 03/28/18 23:00 03/28/18 23:00 03/28/18 23:00 03/28/18 23:00 03/28/18 23:00 <Lili Mcfarland - Last Filed: 03/29/18 02:47> - Vital Signs Last Vital Signs Temp Pulse Resp BP Pulse Ox 98.7 F 90 18 140/78 99 03/28/18 23:00 03/28/18 23:00 03/28/18 23:00 03/28/18 23:00 03/28/18 23:00 - Physical Exam Comments: 03/29/18 02:48 GENERAL: Awake, alert, and fully oriented, in no acute distress HEAD: No signs of trauma EYES: PERRLA, EOMI, sclera anicteric, conjunctiva clear ENT: Auricles normal inspection, hearing grossly normal, nares patent, oropharynx clear without exudates. Moist mucosa NECK: Normal ROM, supple, no lymphadenopathy, JVD, or masses LUNGS: Breath sounds equal, clear to auscultation bilaterally. No wheezes, and no crackles HEART: Regular rate and rhythm, normal S1 and S2, no murmurs, rubs or gallops +ABDOMEN: RUQ tenderness secondary to surgical scars. Site of ANEL drain with small amount of non-malodorous fibrinous exudate. No guarding, no rebound. No masses EXTREMITIES: Normal range of motion, no edema. No clubbing or cyanosis. No cords , erythema, or tenderness BACK: No midline spinal tenderness in cervical/thoracic/lumbar region NEUROLOGICAL: Normal speech, cranial nerves intact, negative pronator drift, 5/ 5 strength in all 4 extremities, normal sensation to light touch in all 4 extremities, normal cerebellar exam, normal gait, normal reflexes and tone SKIN: Warm, Dry, normal turgor, no rashes or lesions noted. <Irma Ricardo - Last Filed: 03/29/18 05:08> Medical Decision Making - Medical Decision Making 03/29/18 02:[address] Fall's answering service, patient's surgeon, case discussed with Dr. Sedrick Sheffield vascular sonographer for Dr. Fall. <Lili Mcfarland - Last Filed: 03/29/18 02:47> - Medical Decision Making 03/29/18 02:34 57yo F hx recent partial cholecystectomy s/p drain removal today by Dr. Sheffield presents to the ED with 7 days of subjective fevers and chills. Vitals wnl. Exam with ttp over RUQ and fibrinous exudate at drain site. C/f possible leak or biloma. Case discussed with Dr. Sheffield, will check labs and admit pt to obs for surgical c/s and US in AM. 03/29/18 03:47 Unable to locate pt Has not had labs done yet 03/29/18 05:07 Pt no longer in ED, has eloped Attempted to call pt's listed number, no answer <Irma Ricardo - Last Filed: 03/29/18 05:08> *DC/Admit/Observation/Transfer - Attestations Scribe Attestion: 03/29/18 02:33 Documentation prepared by Lili Mcfarland, acting as medical office professional instructor for Irma Ricardo MD. <Lili Mcfarland - Last Filed: 03/29/18 02:47> - Attestations Physician Attestion: 03/29/18 05:08 I, Dr. Irma Ricardo MD, attest that this document has been prepared under my direction and personally reviewed by me in its entirety. I further attest, that it accurately reflects all work, treatment, procedures and medical decision -making performed by me. <Irma Ricardo - Last Filed: 03/29/18 05:08> Diagnosis at time of Disposition: Fever - Discharge Dispostion Disposition: ELOPED Condition at time of disposition: Unchanged/Unknown
== END 2018-03-29 05:12 | disposition left against medical advice (07) ==
LOC: JER 22:49
DX: R50.9 Fever, unspecified (principal)
CPT/HCPCS: 99281-25

== ENCOUNTER 2018-03-29 16:51 | Emergency (ER) | payer OTHER ==
--- NOTE | 2018-03-29 17:03 | PDOC ---
Rapid Medical Evaluation Time Seen by Provider: 03/29/18 16:58 Medical Evaluation: Allergies Allergy/AdvReac Type Severity Reaction Status Date / Time meperidine HCl [From Demerol] Allergy Verified 03/28/18 23:05 03/29/18 17:00 I have performed a brief in-person evaluation of this patient. The patient presents with a chief complaint of: infected surgical site. Reports sent by pmd for further evaluation. States feeling chills, and feverish. Drank 400mg of ibuprofen Pertinent physical exam findings are NAD even and unlabored breathing dressing to wound on right upper abdomen I have ordered the following: labs and iv site ordered The patient will proceed to Ed for further evaluation 03/29/18 17:03
[2018-03-29 17:05] VITALS: BP 131/84; PULSE 108; TEMP 98.1; BMI 35.9
--- NOTE | 2018-03-29 17:10 | PDOC ---
History of Present Illness - General Chief Complaint: SIRS, Suspected/Possible Stated Complaint: PCP SENT/INFECTION Time Seen by Provider: 03/29/18 16:58 - History of Present Illness Initial Comments: 03/29/18 17:08 Ms. Hernandez is a 57 yo female w/ pmh of anxiety, panic attacks, GERD who presents for evaluation of 5-6 day history of fever/chills. Patient reports she had partial cholecystectomy done 03/10 w/drain removal 03/28. Patient reports she had difficulty obtaining all ABX and has not taken any she was supposed to for several days. Upon chart checking; patient presented yesterday for same process. Patient was discussed with surgeon security professional for group (Dr. Sheffield) who had seen patient in office that day for drain removal w/ no findings at that time. Decision had been made to admit pt to obs for surgical consult and US however patient was noted to have eloped on further exam. The patient denies chest pain, shortness of breath, headache and dizziness. Denies nausea, vomit, diarrhea and constipation. Denies dysuria, frequency, urgency and hematuria. Past History - Past Medical History Allergies/Adverse Reactions: Allergies Allergy/AdvReac Type Severity Reaction Status Date / Time meperidine HCl [From Demerol] Allergy Verified 03/29/18 17:00 Home Medications: Ambulatory Orders Paroxetine HCl 20 mg PO HS 12/01/15 Acetaminophen [Tylenol .Regular Strength -] 650 mg PO Q6H 30 Days #60 tablet 12/25 Ibuprofen [Motrin -] 600 mg PO Q6HPO 30 Days #60 tablet 03/15/18 Pantoprazole Sodium [Protonix -] 40 mg PO DAILY 30 Days #30 tablet.ec 03/15/18 Sennosides [Senna -] 1 tab PO BID 30 Days #60 tablet 03/15/18 Amoxicillin/Potassium Clav [Augmentin 875-125 Tablet] 1 each PO BID 7 Days #14 tablet 03/29/18 COPD: No GI Disorders: Yes (gastritis ) Psychiatric Problems: Yes (ANXIETY) - Surgical History Cholecystectomy: Yes (2018) - Suicide/Smoking/Psychosocial Hx Smoking Status: No Smoking History: Never smoked Have you smoked in the past 12 months: No Number of Cigarettes Smoked Daily: 0 Hx Alcohol Use: No Drug/Substance Use Hx: No Substance Use Type: None Review of Systems - Review of Systems Comments:: 03/29/18 17:10 GENERAL/CONSTITUTIONAL: +Fever/chills as described. No weakness. HEAD, EYES, EARS, NOSE AND THROAT: No change in vision. No ear pain or discharge. No sore throat. CARDIOVASCULAR: No chest pain or shortness of breath RESPIRATORY: No cough, wheezing, or hemoptysis. GASTROINTESTINAL: No nausea, vomiting, diarrhea or constipation. GENITOURINARY: No dysuria, frequency, or change in urination. MUSCULOSKELETAL: No joint or muscle swelling or pain. No neck or back pain. SKIN: No rash NEUROLOGIC: No headache, vertigo, loss of consciousness, or change in strength/ sensation. ENDOCRINE: No increased thirst. No abnormal weight change HEMATOLOGIC/LYMPHATIC: No anemia, easy bleeding, or history of blood clots. ALLERGIC/IMMUNOLOGIC: No hives or skin allergy. *Physical Exam - Vital Signs Last Vital Signs Temp Pulse Resp BP Pulse Ox 98.1 F 108 H 22 131/84 98 03/29/18 17:02 03/29/18 17:02 03/29/18 17:02 03/29/18 17:02 03/29/18 17:02 - Physical Exam Comments: 03/29/18 17:10 GENERAL: Awake, alert, and fully oriented, in no acute distress HEAD: No signs of trauma, normocephalic, atraumatic EYES: PERRLA, EOMI, sclera anicteric, conjunctiva clear ENT: Auricles normal inspection, hearing grossly normal, nares patent, oropharynx clear without exudates. Moist mucosa NECK: Normal ROM, supple, no lymphadenopathy, JVD, or masses LUNGS: No distress, speaks full sentences, clear to auscultation bilaterally HEART: Regular rate and rhythm, normal S1 and S2, no murmurs, rubs or gallops, peripheral pulses normal and equal bilaterally. ABDOMEN: +Draining and purulent 1cm wound noted to surgical site. Erythema noted surrounding wound for 2cm. Soft, nontender, normoactive bowel sounds. No guarding, no rebound. No masses EXTREMITIES: Normal inspection, normal range of motion, no edema. No clubbing or cyanosis. NEUROLOGICAL: Cranial nerves II through XII grossly intact. Normal speech, normal gait, no focal sensorimotor deficits SKIN: Warm, Dry, normal turgor, no rashes or lesions noted. ED Treatment Course - LABORATORY CBC & Chemistry Diagram: 03/29/18 18:17 03/29/18 18:17 Medical Decision Making - Medical Decision Making 03/29/18 17:51 Ms. Hernandez is a 57 yo female w/ pmh as described who presents for evaluation of post-op fever/chills. Patient familiar to surgery team and left AMA yesterday so surgery group paged upon presentation. Discussed patient with surgery team who would like fluids, labs as drawn and possible CT for evaluation if no elucidating findings. Surgery will evaluate. Also reports that patient had stent placed previously. 03/29/18 20:18 Patient evaluated by surgery who broke up surface plug and expressed fluid; believe this to be a surface infection of tract only. Recomend follow-up in office and PO augmentin assuming negative CT. Patient currently pending CT. 03/29/18 20:58 Attempted to draw chemistry to evaluate kidneys several times however samples continually hemolized. BUN/Cr from 03/13 was 9/0.6. Patient continues to make urine; no concern for kidney injury at this time; decision made to proceed without BUN/Cr from today. Discussed with medical lab technologist that ER physician will take responsibility for this decision in patient's best interest. 03/29/18 23:15 CT negative for acute process. Per discussion with surgery team, patient will be discharged on augmentin 875 BID for 1 week and will follow-up in 2 days for wound check at this ER. Discussed with patient who verbalized understanding and agreement and will comply. Augmentin started in ER. Discharging to home. *DC/Admit/Observation/Transfer Diagnosis at time of Disposition: Drainage from wound - Discharge Dispostion Disposition: HOME - Prescriptions Prescriptions: Amoxicillin/Potassium Clav [Augmentin 875-125 Tablet] 1 each PO BID 7 Days #14 tablet - Referrals - Patient Instructions Printed Discharge Instructions: DI for Postoperative Pain Additional Instructions: You were evaluated today in the ER by surgery and with CT scan. No concerning findings were found at this time. We started you on Augmentin 875 and sent a prescription to your pharmacy. Please take all medications as proscribed. Follow -up in ER in 2 days for wound check. Return to ER earlier if any further fever, chills, pain, or other concerning symptoms. - Post Discharge Activity
--- NOTE | 2018-03-29 17:19 | PDOC ---
Attending Attestation - HPI HPI: 03/29/18 17:54 The patient is a 57 year old female with a past medical history of GERD panic attacks, and anxiety who presents to the emergency department for evaluation of a 5 day history of fever and chills. The patient reports purulent discharge at surgical site on abdomen after having partial cholecystectomy done on 03/10/18. The patient has not taken any antibiotics for several days. The patient denies chest pain, shortness of breath, headache and dizziness. Denies nausea, vomit, diarrhea and constipation. Denies dysuria, frequency, urgency and hematuria. - Physicial Exam PE: Vitals: Triage Vital signs reviewed General Appearance: no acute distress, well nourished well developed, Head: Atraumatic, normocephalic Eyes: Pupils equal reactive round, extraocular movement intact Neck: Supple Chest Wall: Nontender Cardiac: Regular rate and rhythm, no murmurs, no rubs, no gallops, Lungs: Clear to auscultation bilateral, good air movement bilaterally, Abdomen: (+)area with drainage and purulent discharge. Soft, nondistended. Extremities: Full range of motion to all extremities, no cyanosis, clubbing, or edema Skin: Warm and dry, no rashes or lesions, no petechiae Psych: normal mood, normal affect - Medical Decision Making The patient is a 57 year old female with a past medical history of GERD panic attacks, and anxiety who presents to the emergency department for evaluation of surgical site with purulent discharge and a 5 day history of fever/chills. Plan: CT scan of abdomen Labs <Moraima Doty - Last Filed: 03/29/18 17:55> - Resident Resident Name: Kirk Zarco - ED Attending Attestation I have performed the following: I have examined & evaluated the patient, The case was reviewed & discussed with the resident, I agree w/resident's findings & plan, Exceptions are as noted - Medical Decision Making Patient seen and evaluated by surgeon Dr. aFll small plug oversight of biliary drain removed with small amount of drainage likely superficial we will CT abdomen and pelvis and reassessed Reevaluation no acute intra-abdominal collections noted. Will treat with Augmentin. Patient return to ED in 2 days for wound check and will follow up with Dr. Fall surgery next week. Findings, the need for follow-up and strict return instructions discussed with patient. <Jacob Velasquez - Last Filed: 03/29/18 23:49> Attestations - Attestations Documentation prepared by Moraima Doty, acting as medical laboratory scientist for Jacob Velasquez MD. <Moraima Doty - Last Filed: 03/29/18 17:55>
[2018-03-29] MEDS ORDERED: SODIUM CHLORIDE 1,000 ML IV STA (17:40)
[2018-03-29 18:38] LABS: BASO % 0.5 % (0-2.0); EOS % 1.4 % (0-4.5); HEMATOCRIT 31.4 % (32.4-45.2); HEMOGLOBIN 10.6 GM/dL (10.7-15.3); LYMPH % 17.7 % (8-40); MCH 30.4 pg (25.7-33.7); MCHC 33.9 g/dl (32.0-36.0); MEAN CELL VOLUME 89.8 fl (80-96); MEAN PLT VOLUME 9.7 fl (7.5-11.1); MONO % 7.7 % (3.8-10.2); NEUT % 72.7 % (42.8-82.8); PLATELET COUNT 419 K/MM3 (134-434); RDW 15.1 % (11.6-15.6); WHITE BLOOD COUNT 9.1 K/mm3 (4.0-10.0)
[2018-03-29 18:54] LABS: INR 1.09 (0.83-1.09); PROTHROMBIN TIME (PATIENT) 12.3 SEC (9.7-13.0)
[2018-03-29 18:57] LABS: ACTIVATED PTT 35.5 SECONDS (25.2-36.5)
--- NOTE | 2018-03-29 19:15 | CONSULT ---
Consult Consult Specialty:: General Surgery Referred by:: Dr. Zarco Reason for Consultation:: c/o fever/chills s/p biliary stenting - History of Present Illness Chief Complaint: fever/chills since Monday w/night sweats History of Present Illness: 57yo F well-known to me from recent admission during which she had laparoscopic partial cholecystectomy for acute cholecystitis with numerous stones, with Macho drain placement. The drain continued to put out bilious output ~40ml/day as of POD#11 in clinic, so Dr. De Jesus/DRAKE saw her that afternoon, and performed ERCP 03/22 with biliary stenting. Her drain output then decreased quite significantly, as noted by him in his office on Monday, so the drain was removed 2d ago in surgical clinic. To my knowledge, she did not c/o F/C while in surgical clinic. She presented to the ER later that night, complaining of several days of subjective fever and chills, but eloped prior to any labs being drawn. She went to see her PMD Dr. Christine today with similar complaints, and also called our office, and was urged to return to the ER for evaluation. She is seen in the ER, afebrile, with labs pending, c/o chills and night sweats and subjective fever since last Monday, the day after the stenting. She states that Dr. Christine put some ointment on the drain site. She denies N/V, change in bowel habits, abdominal pain or other symptoms. She is drinking contrast for a CT scan. - History Source History Provided By: Patient Limitations to Obtaining History: No Limitations - Past Medical History Gastrointestinal: Yes: GERD Hepatobiliary: Yes: Cholelithiasis, Cholecystitis Psych: Yes: Anxiety, Panic Musculoskeletal: Yes: Chronic low back pain - Past Surgical History Past Surgical History: Yes: Cholecystectomy (laparoscopic partial 03/10/18), Upper Endoscopy (ERCP with biliary stent 03/22/18) Additional Surgical History: ERCP w/biliary stent 03/22/18 - Alcohol/Substance Use Hx Alcohol Use: No History of Substance Use: reports: None - Smoking History Smoking history: Never smoked Have you smoked in the past 12 months: No Aproximately how many cigarettes per day: 0 - Social History ADL: Independent Home Medications - Allergies Allergies/Adverse Reactions: Allergies Allergy/AdvReac Type Severity Reaction Status Date / Time meperidine HCl [From Demerol] Allergy Verified 03/29/18 17:00 - Home Medications Home Medications: Ambulatory Orders Paroxetine HCl 20 mg PO HS 12/01/15 Acetaminophen [Tylenol .Regular Strength -] 650 mg PO Q6H 30 Days #60 tablet 12/25 Ibuprofen [Motrin -] 600 mg PO Q6HPO 30 Days #60 tablet 03/15/18 Pantoprazole Sodium [Protonix -] 40 mg PO DAILY 30 Days #30 tablet.ec 03/15/18 Sennosides [Senna -] 1 tab PO BID 30 Days #60 tablet 03/15/18 Amoxicillin/Potassium Clav [Augmentin 875-125 Tablet] 1 each PO BID 7 Days #14 tablet 03/29/18 Family Disease History - Family Disease History Family Disease History: Heart Disease: Father (heart attack), Other: Mother ( liver cirrhosis), Sister (3 sisters had cholecystectomies) Review of Systems - Review of Systems Constitutional: reports: Chills, Diaphoresis, Fever, Night Sweats Eyes: denies: Blurred Vision, Recent Change in Vision HENT: denies: Difficult Swallowing, Throat Pain Neck: denies: Swollen Glands, Tenderness Cardiovascular: denies: Chest Pain, Palpitations Respiratory: denies: Cough, SOB Gastrointestinal: denies: Abdominal Pain, Constipation, Diarrhea, Nausea, Vomiting Genitourinary: denies: Burning, Dysuria Musculoskeletal: reports: Back Pain (chronic). denies: Joint Pain, Muscle Pain Integumentary: reports: Incision (healing sites on abdomen, drain removal site R mid abdomen with dressing). denies: Change in Color, Rash Neurological: denies: Dizziness, Headache Psychiatric: reports: Anxiety. denies: Depression Physical Exam Vital Signs: Vital Signs Temperature 98.1 F 03/29/18 17:02 Pulse Rate 108 H 03/29/18 17:02 Respiratory Rate 22 03/29/18 17:02 Blood Pressure 131/84 03/29/18 17:02 O2 Sat by Pulse Oximetry (%) 98 03/29/18 17:02 Constitutional: Yes: No Distress, Calm, Obese Eyes: Yes: Conjunctiva Clear, EOM Intact. No: Sclera Icterus HENT: Yes: Atraumatic, Normocephalic Neck: Yes: Supple, Trachea Midline Cardiovascular: Yes: Regular Rate and Rhythm Respiratory: Yes: Regular, CTA Bilaterally Gastrointestinal: Yes: Soft, Abdomen, Obese, Other (R midabdominal drain site dressing removed - small yellow plug of necrotic tissue present, no active drainage, mild erythema surrounding locally). No: Tenderness ...Rectal Exam: Yes: Deferred Renal/: No: CVA Tenderness - Left, CVA Tenderness - Right Musculoskeletal: No: Joint Stiffness, Joint Swelling Extremities: Yes: Cool (hands). No: Cyanosis Edema: No Peripheral Pulses WNL: Yes Integumentary: Yes: Erythema (mild/local at drain site only), Incision (nearly healed at supraumbilical and subxiphoid sites, healing at RUQ site; drain site as noted above), Tattoos. No: Rash Wound/Incision: Yes: Well Approximated (other 3 sites), Dressing Dry and Intact , Dressing Removed, Reddened (mild/local only), Unapproximated (R drain site - yellow plug of tissue opened with cotton-tipped applicator, with drop of purulent drainage, but no pus beneath; only open <1cm deep, tucked corner of 2x2 gauze into wound, remaining gauze on top, covered with 2x2 gauze and plastic tape) Neurological: Yes: Alert, Oriented Psychiatric: Yes: Alert, Oriented Labs: CBC, BMP 03/29/18 18:17 03/29/18 18:17 chem to be repeated wbc normal afebrile Imaging - Results Cat Scan: Pending Problem List - Problems (1) Cellulitis of drainage site, post-operative Assessment/Plan: possible superficial infection at drain exit site with mild cellulitis check CT abd/pelvis to ensure no other abnormalities presuming no acute findings on CT, pt may be d/c home: leave dressing until Sat am, then see ER for wound check in case it needs ongoing packing vs just gauze and tape to cover till healed Augmentin bid x 1 week f/u with me in clinic next Mon - pt will need to call for appt time discussed with Drs. Zarco and Ron in ER Code(s): T81.4XXA - INFECTION FOLLOWING A PROCEDURE, INITIAL ENCOUNTER Qualifiers: Encounter type: initial encounter Qualified Code(s): T81.4XXA - Infection following a procedure, initial encounter (2) Chills without fever Assessment/Plan: afebrile in ER Code(s): R68.83 - CHILLS (WITHOUT FEVER) (3) Postoperative bile leak Assessment/Plan: s/p biliary stent with resolution of bile drainage, s/p drain removal yesterday Code(s): K91.89 - OTH POSTPROCEDURAL COMPLICATIONS AND DISORDERS OF DGSTV SYS; K83.8 - OTHER SPECIFIED DISEASES OF BILIARY TRACT (4) GERD (gastroesophageal reflux disease) Code(s): K21.9 - GASTRO-ESOPHAGEAL REFLUX DISEASE WITHOUT ESOPHAGITIS Qualifiers: Esophagitis presence: without esophagitis Qualified Code(s): K21.9 - Gastro -esophageal reflux disease without esophagitis (5) Generalized anxiety disorder with panic attacks Code(s): F41.1 - GENERALIZED ANXIETY DISORDER; F41.0 - PANIC DISORDER [EPISODIC PAROXYSMAL ANXIETY] (6) Obesity due to excess calories without serious comorbidity Code(s): E66.09 - OTHER OBESITY DUE TO EXCESS CALORIES Qualifiers: Obesity classification: adult class 2 (BMI 35 - 39.9) Body mass index: BMI 36.0-36.9 Qualified Code(s): E66.09 - Other obesity due to excess calories; Z68.36 - Body mass index (BMI) 36.0-36.9, adult
[2018-03-29] MEDS ORDERED: AMOX TR/POT CLAV 875MG/125MG TABLETS (FP) PO ONE (23:11)
[2018-03-29] MEDS ORDERED: AMOX TR/POT CLAV 875MG/125MG TABLETS (FP) ONE (23:23)
== END 2018-03-29 23:36 | disposition home or self-care (01) ==
LOC: JER 16:51
PROC: 3E0337Z Introduction of Electrolytic and Water Balance Substance into Peripheral Vein, Percutaneous Approach (ICD-10-PCS; principal; 2018-03-29)
DX: T81.4XXA Infection following a procedure, initial encounter (principal); K91.89 Other postprocedural complications and disorders of digestive system; K83.8 Other specified diseases of biliary tract; M54.5 Low back pain; G89.29 Other chronic pain; F41.1 Generalized anxiety disorder; E66.9 Obesity, unspecified; Z68.35 Body mass index [BMI] 35.0-35.9, adult; Z87.19 Personal history of other diseases of the digestive system; K21.9 Gastro-esophageal reflux disease without esophagitis
CPT/HCPCS: 36415; 74177-TC; 85025; 85610; 85730; 87040; 99281-25; J7030

== ENCOUNTER 2018-03-31 15:07 | Emergency (ER) | payer OTHER ==
[2018-03-31 15:21] VITALS: TEMP 98.3; BMI 34.0
--- NOTE | 2018-03-31 16:30 | PDOC ---
History of Present Illness - General Chief Complaint: Wound Stated Complaint: REVIST Time Seen by Provider: 03/31/18 15:57 - History of Present Illness Initial Comments: The patient is a 57F who presents 3wks s/p kirstie morales for evaluation of ANEL drain site wound. Endorses small amount of white drainage daily. Denies increased pain , swelling, foul odor. Endorses chills w/o fever. Patient denies cleaning the wound with soap and water every day. Patient of day 08/[address] Fall. Patient reports that she has been tolerating her diet well w/o N/V. Denies diarrhea. Patient reports that Dr. Fall has recently seen her incisions/wound and plans to f/u up this coming Monday. 03/31/18 16:23 Past History - Past Medical History Allergies/Adverse Reactions: Allergies Allergy/AdvReac Type Severity Reaction Status Date / Time meperidine HCl [From Demerol] Allergy Verified 03/29/18 17:00 Home Medications: Ambulatory Orders Paroxetine HCl 20 mg PO HS 12/01/15 Acetaminophen [Tylenol .Regular Strength -] 650 mg PO Q6H 30 Days #60 tablet 12/25 Ibuprofen [Motrin -] 600 mg PO Q6HPO 30 Days #60 tablet 03/15/18 Pantoprazole Sodium [Protonix -] 40 mg PO DAILY 30 Days #30 tablet.ec 03/15/18 Sennosides [Senna -] 1 tab PO BID 30 Days #60 tablet 03/15/18 Amoxicillin/Potassium Clav [Augmentin 875-125 Tablet] 1 each PO BID 7 Days #14 tablet 03/29/18 COPD: No GI Disorders: Yes (gastritis ) Psychiatric Problems: Yes (ANXIETY) - Surgical History Cholecystectomy: Yes (2018) - Suicide/Smoking/Psychosocial Hx Smoking Status: No Smoking History: Never smoked Have you smoked in the past 12 months: No Number of Cigarettes Smoked Daily: 0 Hx Alcohol Use: No Drug/Substance Use Hx: No Substance Use Type: None Review of Systems - Review of Systems Able to Perform ROS?: Yes Comments:: GENERAL/CONSTITUTIONAL: +Chills. No fever. No weakness HEAD, EYES, EARS, NOSE AND THROAT: No change in vision. No ear pain or discharge. No sore throat CARDIOVASCULAR: No chest pain or shortness of breath RESPIRATORY: No cough, wheezing, or hemoptysis GASTROINTESTINAL: No nausea, vomiting, diarrhea or constipation GENITOURINARY: No dysuria, frequency, or change in urination MUSCULOSKELETAL: No joint or muscle swelling or pain. No neck or back pain SKIN: per HPI NEUROLOGIC: No headache, loss of consciousness, or change in strength/sensation *Physical Exam - Vital Signs Last Vital Signs Temp Pulse Resp BP Pulse Ox 98.3 F 103 H 18 131/74 99 03/31/18 15:18 03/31/18 15:18 03/31/18 15:18 03/31/18 15:18 03/31/18 15:18 - Physical Exam Comments: GENERAL: Awake, alert, and fully oriented, in no acute distress HEAD: No signs of trauma, normocephalic, atraumatic EYES: PERRL, EOMI, sclera anicteric, conjunctiva clear ENT: Hearing grossly normal, nares patent, oropharynx clear without exudates. Moist mucosa NECK: Normal ROM, supple, no lymphadenopathy LUNGS: No distress, speaks full sentences, clear to auscultation bilaterally HEART:Regular rate and rhythm, normal S1 and S2, no murmurs appreciated, peripheral pulses normal and equal bilaterally ABDOMEN: Soft, NTTP, non-distended, R abd ANEL drain wound with small fibrinous exudate, no purulence/induration/surrounding fluctuance/or increased TTP near incision, other port sites are C/D/I and healing well, normoactive bowel sounds. No guarding, no rebound EXTREMITIES : Normal inspection, Normal range of motion, no edema. No clubbing or cyanosis NEUROLOGICAL: Cranial nerves II through XII grossly intact. Normal speech, normal gait, no focal sensorimotor deficits SKIN: Warm, Dry, normal turgor, no rashes or lesions noted 03/31/18 16:57 Medical Decision Making - Medical Decision Making The patient is a 57F who presents 3wks s/p lap carmen by Dr. Fall for wound check ED Course Patient afebrile Vitals recheked, non-tachycardic (67) Patient on day 2 of 7 of Augmentin Patient given wound care instructions: wash daily with soap and running water; pat dry; cover with dry gauze Patient states she will follow up with her surgeon, Dr. Fall on Monday Plan for D/C w/ continued abx and Surgical f/u Patient in agreement with plan and verbalizes understanding Patient aware to follow up in clinic on Monday Patient given return precautions Spoke with Dr. Sheffield regarding the patient. Update given regarding current state of the wound and plan for patient follow up. Dispo: Home 03/31/18 16:36 *DC/Admit/Observation/Transfer Diagnosis at time of Disposition: Visit for wound check, Chills without fever Cellulitis of drainage site, post-operative Qualifiers: Encounter type: subsequent encounter Qualified Code(s): T81.4XXD - Infection following a procedure, subsequent encounter - Discharge Dispostion Disposition: HOME Condition at time of disposition: Stable Decision to Admit order: No - Referrals Referrals: Michi Christine [Primary Care Provider] - Willie Fall MD [Staff Physician] - - Patient Instructions Printed Discharge Instructions: DI for Wound Dehiscence Additional Instructions: You were seen today in the Emergency Department for evaluation of you surgical incision site. Please review the handout provided at discharge. Please wash your incisions everyday with soap and running water. Pat dry. Place dry gauze over the wound. Follow up with your Surgeon this week. Return to the Emergency Department if you develop fevers, worsening redness at the site of the wound, increased drainage, increased pain at the site, or new concerning symptoms. Print Language: VIETNAMESE - Post Discharge Activity
--- NOTE | 2018-03-31 16:46 | PDOC ---
Attending Attestation - Resident Resident Name: Joel Velazco - ED Attending Attestation I have performed the following: I have examined & evaluated the patient, The case was reviewed & discussed with the resident, I agree w/resident's findings & plan, Exceptions are as noted - HPI HPI: 03/31/18 16:45 The patient is a 57 year old female, with a significant PMH of GERD, panic attacks, and anxiety who presents to the emergency department for wound check s/ p cholecystectomy on 03/10/18. Pt came to ER 2 days ago for redness around surgical incision. Pt was seen by Dr. Fall and started on augmentin. The patient has no complaints today. States the wound is improving and pain is resolved. Denies F/C. Has f/u with Dr. Fall on Monday. The patient denies chest pain, shortness of breath, headache and dizziness. Denies fever, chills, nausea, vomit, diarrhea and constipation. Denies dysuria, frequency, urgency and hematuria. Allergies: meperidine HCL Past surgical history: partial cholecystectomy on 03/10/18 Social history: No reported - Physicial Exam PE: 03/31/18 16:47 GENERAL: Awake, alert, and fully oriented, in no acute distress. HEAD: No signs of trauma EYES: PERRLA, EOMI, sclera anicteric, conjunctiva clear ENT: Auricles normal inspection, hearing grossly normal, nares patent, oropharynx clear without exudates. Moist mucosa NECK: Nontender, no stepoffs, Normal ROM, supple, no lymphadenopathy, JVD, or masses LUNGS: Breath sounds equal, clear to auscultation bilaterally. No wheezes, and no crackles HEART: Regular rate and rhythm, normal S1 and S2, no murmurs, rubs or gallops ABDOMEN: + 1 cm surgical incision open but without significant erythema, no induration, no fluctuance, Soft, nontender, normoactive bowel sounds. No guarding, no rebound. No masses EXTREMITIES: Normal range of motion, no edema. No clubbing or cyanosis. No cords, erythema, or tenderness NEUROLOGICAL: Cranial nerves II through XII intact. 5/5 strength and sensation in all extremities, Normal speech, normal gait, normal cerebellar function SKIN: Warm, Dry, normal turgor, no rashes or lesions noted. - Medical Decision Making 03/31/18 16:48 57 F with recent lap partial carmen c/b wound infection, presenting for wound check. Exam shows dehisced surgical incision with no signs of active infection. Pt initially tachy in ED but with no fever, no hypotension. - Recheck vitals 03/31/18 17:19 Repeat HR in 70s. Pt is well appearing, with normal vitals. Clinically stable for DC at this time. I discussed the physical exam findings, ancillary test results and final diagnoses with the patient. I answered all of the patient's questions. The patient was satisfied with the care received and felt comfortable with the discharge plan and treatment plan. The patient agrees to follow up with the primary care physician within 24-72 hours. <David Perez - Last Filed: 03/31/18 17:19> Attestations - Attestations 03/31/18 16:58 Documentation prepared by Los Rocha, acting as medical instrument cable fabricator for David Perez MD. <Los Rocha - Last Filed: 03/31/18 16:57>
[2018-03-31 17:57] VITALS: BP 129/73; PULSE 62
== END 2018-03-31 17:57 | disposition home or self-care (01) ==
LOC: JER 15:07 → JERFT 15:07 → JER 17:57
DX: T81.4XXD Infection following a procedure, subsequent encounter (principal); Z48.815 Encounter for surgical aftercare following surgery on the digestive system; K91.89 Other postprocedural complications and disorders of digestive system
CPT/HCPCS: 99282-25

== ENCOUNTER 2018-05-22 10:22 | Day surgery (SDC) | payer OTHER ==
[2018-05-22 07:33] VITALS: BMI 36.1
[2018-05-22] MEDS ORDERED: IOHEXOL 300 MG/ML INFUS..BTL IJ ONE (11:35)
[2018-05-22 12:16] VITALS: TEMP 98.2
[2018-05-22 14:54] VITALS: BP 147/78; PULSE 83
--- NOTE | 2018-05-23 18:01 | PATH ---
Surgical Pathology Report Patient Name: DONALD ANTHONY [facility]. Rec. #: [id number] /Age/Gender: 1960 (Age: 57) / F Account: [id number] Location: ASU-ENDOSCOPY Taken: 05/22/2018 Received: 05/22/2018 Reported: 05/23/2018 Physicians: Eloy De Jesus M.D. Specimen(s) Received BILLARY STENT Clinical History Bile leak Final Diagnosis BILIARY STENT, REMOVAL: BILIARY STENT. MACROSCOPIC DIAGNOSIS. Electronically Signed Roseann Ho M.D. Gross Description Received fresh labeled "biliary stent," is a 20 cm in length blue, coiled portion of tubing, consistent with a biliary stent. No soft tissue is present. No sections are submitted, gross only. 05/22/2018 [facility]05/22/2018
== END 2018-05-22 14:00 | disposition home or self-care (01) ==
LOC: JASU-ENDO 10:22
PROVIDERS: ATTEND Internal Medicine Gastroenterology
PROC: 0FPB8DZ Removal of Intraluminal Device from Hepatobiliary Duct, Via Natural or Artificial Opening Endoscopic (ICD-10-PCS; principal; 2018-05-22 08:00)
DX: K83.8 Other specified diseases of biliary tract (principal)
CPT/HCPCS: 88300-TC

== ENCOUNTER 2018-12-07 23:20 | Inpatient (IN) | payer OTHER | END 2018-12-12 12:31 | disposition home or self-care (01) | LOC: JER 23:20 → JERBED 12-08 05:28 → J8W 12-08 06:25 ==

== ENCOUNTER 2019-12-17 11:55 | Emergency (ER) | payer OTHER ==
[2019-12-17 12:06] VITALS: TEMP 98.9; BMI 27.3
[2019-12-17 12:51] LABS: BASO % 0.2 % (0-2.0); EOS % 1.3 % (0-4.5); HEMATOCRIT 34.7 % (32.4-45.2); HEMOGLOBIN 11.5 GM/dL (10.7-15.3); LYMPH % 27.6 % (8-40); MCH 30.4 pg (25.7-33.7); MCHC 33.3 g/dl (32.0-36.0); MEAN CELL VOLUME 91.3 fl (80-96); MEAN PLT VOLUME 9.1 fl (7.5-11.1); MONO % 8.9 % (3.8-10.2); PLATELET COUNT 245 K/MM3 (134-434); RBC 3.79 M/mm3 (3.60-5.2); RDW 13.9 % (11.6-15.6)
[2019-12-17 13:23] LABS: ALBUMIN 3.7 g/dl (3.4-5.0); ALK PHOS 102 U/L (45-117); ANION GAP 5 MMOL/L (8-16); BILIRUBIN,DIRECT 0.1 mg/dL (0.0-0.2); BILIRUBIN,TOTAL 0.3 mg/dL (0.2-1); CALCIUM 8.9 mg/dL (8.5-10.1); CHLORIDE 105 mmol/L (98-107); CO2 28 mmol/L (21-32); CREATININE 0.8 mg/dL (0.55-1.3); GLUCOSE,RANDOM 125 mg/dL (74-106); LIPASE 115 U/L (73-393); POTASSIUM 3.6 mmol/L (3.5-5.1); SGOT/AST 15 U/L (15-37); SGPT/ALT 17 U/L (13-61); SODIUM 138 mmol/L (136-145); TOT PROT 8.5 g/dl (6.4-8.2)
[2019-12-17] MEDS ORDERED: MAG HYDROX/AL HYDROX/SIMETH -MYLANTA- ORAL SUSPENSION PO ONE (13:27)
[2019-12-17] MEDS ORDERED: FAMOTIDINE 20 MG/50 ML IVPB 20 MG/50 ML MG IVPB ONE ×2 (13:27→13:33)
[2019-12-17 13:30] LABS: GAMMA GLUTAMYL TRANSPEPTIDASE 17 U/L (5-85)
[2019-12-17] MEDS ORDERED: MAG HYDROX/AL HYDROX/SIMETH 30 ML UNIT-DOSE CUP ONE (13:30)
[2019-12-17 13:55] LABS: EPI CELLS >36 /uL (0-25.1); HYALINE CASTS 8 /uL (0-3.1); URINE APPEARANCE CLOUDY; URINE BACTERIA 607 /uL (0-1359); URINE BILIRUBIN NEGATIVE (NEGATIVE); URINE COLOR YELLOW; URINE GLUCOSE (UA) NEGATIVE (NEGATIVE); URINE KETONE NEGATIVE (NEGATIVE); URINE LEUK ESTERASE 1+ (NEGATIVE); URINE NITRITE NEGATIVE (NEGATIVE); URINE PROTEIN TRACE (NEGATIVE); URINE RBC 7 /uL (0-23.9); URINE UROBILINOGEN 0.2 mg/dL (0.2-1.0); URINE WBC 89 /uL (0-25.8)
[2019-12-17] MEDS ORDERED: ACETAMINOPHEN 500 MG TABLET (FP) PO ONE (15:00)
[2019-12-17] MEDS ORDERED: ACETAMINOPHEN INJECTION 100 ML IVPB ONE (15:01)
[2019-12-17] MEDS ORDERED: ACETAMINOPHEN 1000 MG/100 ML VIAL (NON FORMULARY) IVPB ONE (15:04)
[2019-12-17 15:07] VITALS: BP 132/88; PULSE 76
== END 2019-12-17 15:29 | disposition home or self-care (01) ==
LOC: JER 11:55
PROC: 3E03329 Introduction of Other Anti-infective into Peripheral Vein, Percutaneous Approach (ICD-10-PCS; principal; 2019-12-17)
PROC: 3E033GC Introduction of Other Therapeutic Substance into Peripheral Vein, Percutaneous Approach (ICD-10-PCS; 2019-12-17)
DX: R10.11 Right upper quadrant pain (principal)
CPT/HCPCS: 36415; 74177-TC; 80053; 81003; 82248; 82977; 83690; 84484; 85025; 87086; 93005; 93010; 99285-25; J0131; Q9967

== ENCOUNTER 2020-01-26 03:09 | Emergency (ER) | payer OTHER ==
[2020-01-26 03:24] VITALS: BP 136/80; PULSE 100; TEMP 98.6; BMI 25.8
--- NOTE | 2020-01-26 03:39 | PDOC ---
Attending Attestation - Resident Resident Name: YuniorLopez - ED Attending Attestation I have performed the following: I have examined & evaluated the patient, The case was reviewed & discussed with the resident, I agree w/resident's findings & plan - HPI HPI: 01/26/20 05:07 Pt comes with wrist pain and generalized arthritis. She wants to make sure she get a prescription for NSAIDS as she had done in the past. States that Naprosyn works well for her. Pt has no other complaints other than hip and knee and other chronic joint pains - Physicial Exam PE: 01/26/20 05:08 Normal exam. I agree with resident exam - Medical Decision Making 01/26/20 05:08 Home with naprosyn and lidoderm patches. Pt has DJD in the wrist bones otherwise normal Discharge - Discharge Information Problems reviewed: Yes Clinical Impression/Diagnosis: DJD (degenerative joint disease) Wrist pain, acute Qualifiers: Laterality: left Qualified Code(s): M25.532 - Pain in left wrist Condition: Stable Disposition: HOME - Additional Discharge Information Prescriptions: Lidocaine 5% Patch [Lidoderm Patch -] 1 patch TP DAILY #30 patch Naproxen [Naprosyn] 500 mg PO BID #40 tablet - Follow up/Referral - Patient Discharge Instructions Patient Printed Discharge Instructions: DI for Osteoarthritis, Osteoarthritis, Osteoarthritis (Alternative Therapy) Additional Instructions: You were seen and evaluated in the ED for left wrist pain. Your exam was consistent with arthritis which should be discussed with your primary care doctor. Please continue to take Motrin (anti-inflammatory) as directed on the package label for your pain. Follow up with your primary care doctor on Monday for continued care. Return to the ED for any new or concerning symptoms including but not limited to: swelling of the wrist, development of fevers and chills, nausea and vomiting, or severe pain not responsive to pain medication. - Post Discharge Activity
[2020-01-26] MEDS ORDERED: IBUPROFEN 400 MG TABLET (FP) PO ONE ×2 (03:45→03:48)
--- NOTE | 2020-01-26 03:56 | PDOC ---
History of Present Illness - General Chief Complaint: Pain Stated Complaint: L WRIST PAIN Time Seen by Provider: 01/26/20 03:27 History Source: Patient Exam Limitations: No Limitations - History of Present Illness Initial Comments: 01/26/20 04:03 HPI: 59yo F PMH anxiety presenting to the ED with left wrist pain for 1 day. Patient woke up with pain in her left wrist. Denies trauma, reports never having pain like this before. Pain limits ROM, was improved with ibuprofen at home and recurred hours later. Endorses a similar pain in the neck "years ago" for which she was given anti-inflammatory medications. Denies HTN, HLD, DM. Denies IVDU. No skin breaks or injuries at the site of her pain. Patient denies fevers, chills, nausea, vomiting, chest pain, SOB. No other concerns. All: Meperidine HCL Meds: Paxil PMH: Anxiety PSH: Denies Past History - Travel History Traveled outside of the country in the last 30 days: No Close contact w/someone who was outside of country & ill: No - Medical History Allergies/Adverse Reactions: Allergies Allergy/AdvReac Type Severity Reaction Status Date / Time meperidine HCl [From Demerol] Allergy Verified 01/26/20 03:24 Home Medications: Ambulatory Orders Paroxetine HCl [Paxil] 20 mg PO 12/08/18 Ranitidine [Zantac -] 150 mg PO DAILY 12/08/18 Zolpidem Tartrate [Ambien] 5 mg PO HS 12/08/18 Acetaminophen [Tylenol .Regular Strength -] 650 mg PO Q4H PRN tablet 12/12/18 Ibuprofen [Motrin -] 600 mg PO Q6H PRN #90 tablet 12/12/18 Lactobacillus Acidophilus [Bacid -] 1 tab PO DAILY #30 tab 12/12/18 Pantoprazole Sodium [Protonix -] 40 mg PO DAILY #30 tablet.ec 12/12/18 Paroxetine HCl [Paxil -] 20 mg PO DAILY #30 tablet 12/12/18 Zolpidem Tartrate [Ambien] 5 mg PO HS PRN tablet MDD 1 12/12/18 Lidocaine 5% Patch [Lidoderm Patch -] 1 patch TP DAILY #30 patch 01/26/20 Naproxen [Naprosyn] 500 mg PO BID #40 tablet 01/26/20 COPD: No Diabetes: No (Prediabetes) GI Disorders: Yes (GERD) Psychiatric Problems: Yes (ANXIETY) - Surgical History Cholecystectomy: Yes - Immunization History Immunization Up to Date: Yes - Psycho-Social/Smoking History Smoking Status: No Smoking History: Never smoked Have you smoked in the past 12 months: No Number of Cigarettes Smoked Daily: 0 - Substance Abuse Hx (Audit-C & DAST Scrn) How often the patient has a drink containing alcohol: Monthly or less How often the patient has six or more drinks on one occasion: Never Score: In Men: 4 or > Positive; In Women: 3 or > Positive: 1 Screen Result (Pos requires Nsg. Audit-10AR): Negative In the last yr the pt used illegal drug/Rx for NonMed reason: No Score: Yes response is considered Positive: 0 Screen Result (Positive result requires Nsg. DAST-10): Negative Review of Systems - Review of Systems Able to Perform ROS?: Yes Is the patient limited Citizen Of [place] proficient: Yes Constitutional: No: Chills, Diaphoresis, Fever HEENTM: No: Nose Pain, Nose Congestion, Throat Pain, Throat Swelling Respiratory: No: Cough, Shortness of Breath, Wheezing Cardiac (ROS): No: Chest Pain, Irregular Heart Rate, Chest Tightness ABD/GI: No: Constipated, Diarrhea, Nausea, Vomiting : No: Burning, Dysuria, Frequency Musculoskeletal: Yes: See HPI, Joint Pain, Joint Stiffness. No: Muscle Pain, Muscle Weakness Integumentary: No: Bruising, Pruritus, Rash Neurological: No: Headache, Numbness, Tingling, Weakness Psychiatric: No: Stressors, Change in Appetite Endocrine: No: Increased Thirst, Increased Urine Hematologic/Lymphatic: No: Anemia, Blood Clots, Easy Bleeding All Other Systems: Reviewed and Negative *Physical Exam - Vital Signs Last Vital Signs Temp Pulse Resp BP Pulse Ox 98.6 F 100 H 18 136/80 100 01/26/20 03:17 01/26/20 03:17 01/26/20 03:17 01/26/20 03:17 01/26/20 03:17 - Physical Exam 01/26/20 04:09 Vitals reviewed, afebrile VSS GEN: Well appearing, appears stated age, NAD, comfortable. AAOx3. HEENT: NCAT, EOMI, PERRL. Sclera anicteric, noninjected. No facial asymmetry. Moist mucous membranes. Normal voice. Trachea midline. CV: RRR, S1/S2, no murmurs / rubs / gallops appreciated. LUNG: CTABL, normal work of breathing. No wheezes, rales, rhonchi. No cough. Speaking full sentences. GI: Soft, NTND, +BS, no guarding, no rebound. No masses. EXTREMITIES: 2+ distal pulses. No clubbing / cyanosis / edema. No gross deformity in any extremity. Unable to cooperate with LUE exam due to pain. No erythema, warmth, swelling, crepitus. Pain elicited on ROM. Neurovascularly intact with 2+ pulses, normal sensation, soft compartments. SKIN: Warm, dry, no rashes appreciated, non-jaundiced. PSYCH: Normal mood and affect. Cooperative and appropriate. NEURO: CN grossly intact. Moving all extremities well. Normal strength and sensation grossly. Medical Decision Making - Medical Decision Making 01/26/20 03:46 59yo F PMH anxiety presenting to the ED with left wrist pain for 1 day. Exam limited by pain, no cellulitic changes, no crepitus, patient afebrile and hemodynamically stable. DDX includes but not limited to: arthritis, fracture (pathologic?), soft tissue injury. Unlikely compartmetn syndrome with patient neurovascularly intact with soft compartments. - Motrin - L wrist x-ray 01/26/20 05:07 No acute bony pathology Pain somewhat improved after Motrin Lidoderm patch Toradol IM Naproxen to pharmacy per patient request Also Rx for lidoderm Dispo: Home Discharge - Discharge Information Problems reviewed: Yes Clinical Impression/Diagnosis: Wrist pain, acute Qualifiers: Laterality: left Qualified Code(s): M25.532 - Pain in left wrist Condition: Stable - Admission No - Additional Discharge Information Prescriptions: Lidocaine 5% Patch [Lidoderm Patch -] 1 patch TP DAILY #30 patch Naproxen [Naprosyn] 500 mg PO BID #40 tablet - Follow up/Referral - Patient Discharge Instructions Patient Printed Discharge Instructions: DI for Osteoarthritis Additional Instructions: You were seen and evaluated in the ED for left wrist pain. Your exam was consistent with arthritis which should be discussed with your primary care doctor. Prescriptions for Naproxen and lidoderm patches were sent to your pharmacy. Please pick these up at your earliest convenience and take as directed. Follow up with your primary care doctor on Monday morning for continued care. Return to the ED for any new or concerning symptoms. Print Language: YAKUT - Post Discharge Activity
[2020-01-26] MEDS ORDERED: KETOROLAC TROMETHAMINE 15 MG/ML VIAL IM ONE (05:06)
[2020-01-26] MEDS ORDERED: LIDOCAINE 5% TOPICAL PATCH TP ONE (05:06)
[2020-01-26] MEDS ORDERED: KETOROLAC TROMETHAMINE 15 MG/ML VIAL ONE (05:19)
[2020-01-26] MEDS ORDERED: LIDOCAINE 5% TOPICAL PATCH ONE (05:19)
[2020-01-26] MEDS ORDERED: LIDOCAINE PATCH REMOVAL MC SCH (22:00)
== END 2020-01-26 05:39 | disposition home or self-care (01) ==
LOC: JER 03:09
PROC: 3E023GC Introduction of Other Therapeutic Substance into Muscle, Percutaneous Approach (ICD-10-PCS; principal; 2020-01-26)
DX: M25.532 Pain in left wrist (principal)
CPT/HCPCS: 73110-TC-LT-FY; 73130-TC-LT-FY; 99284-25